=== PATIENT | male | born 1960 | race Caucasian/White ===

== ENCOUNTER 2024-09-20 08:36 | Outpatient (AMB) | payer BC, SELFPAY ==
--- NOTE | 2024-09-20 09:05 | A.SPINEOV_ITS ---
Intake Visit Reasons: cervical radiculopathy Intake Note: Mr. Vieira is here today c/o numbness and tingling in both hands. MRI done @ [facility] Meteorological Technician Required: No Assessment & Plan Assessment & Plan (1) Carpal tunnel syndrome on both sides: Code(s): G56.03 - Carpal tunnel syndrome, bilateral upper limbs Category: Medical Plan Dear colleague Thank you for referring Emilio Vieira to the office today with a chief complaint of bilateral hand numbness and tingling. HPI: This 64-year-old male developed tingling in both hands approximately 6 months ago. The tingling is mostly in the thumb index and middle finger. The right side is more affected than the left side. The symptoms are worse in the middle of the night and wake him up. He drops objects. He denies radiating pain from the neck. PMH: Hypercholesterolemia, arthritis, prediabetes Allergies: NKDA Social history: Employed. Nonsmoker Physical Exam: Pleasant male. Wrist flexion produces tingling in the hands. Nuclear Medicine Technician is 4+ out of 5 bilaterally. Reflexes are symmetrically intact. Radiological Studies: MRI done at [facility] shows cervical degenerative disc disease with bilateral C6 foraminal stenosis. . In addition there is right C5 foraminal stenosis. Impression/Plan: This patient is most likely suffering from carpal tunnel syndrome. I will order an EMG to confirm the diagnosis. The patient will follow-up after the EMG is done. Thank you for allowing me to participate in your patients care. total time spent was 45 minutes in counseling ,coordination of plan, personal review of imaging, surgical decision making and subsequent plan Ignacio Kenney MD, PhD Spine Fellowship Trained Neurosurgeon Director, [facility] Orders: Orders 2 NE electromyogram (EMG) Today G56.03 - Carpal tunnel syndrome, bilateral upper limbs Coding Level of Care Code New Pt Level 4 (24939) Diagnoses Carpal tunnel syndrome on both sides G56.03
== END 2024-09-20 09:26 | disposition home or self-care (01) ==
PROVIDERS: PCP Student in an Organized Health Care Education/Training Program; Visit Provider Neurological Surgery
DX: G56.03 Carpal tunnel syndrome, bilateral upper limbs (principal)
CPT/HCPCS: 99204

== ENCOUNTER → 2024-09-20 08:36 | Outpatient (BNVA) | payer OTHER, SELFPAY | PROVIDERS: PCP Student in an Organized Health Care Education/Training Program; Visit Provider Neurological Surgery ==

== ENCOUNTER 2024-10-11 13:30 | Outpatient (REF) | payer BC, SELFPAY ==
--- NOTE | 2024-10-11 | EMG_ITS ---
Chief complaint: Bilateral hand numbness, denies neck pain Reason for referral: Evaluate for Carpal Tunnel Syndrome Referred by: Dr. Kenney Procedure done: Bilateral upper extremities NCS/EMG Precautions and/or limitations: None The limb temperature was monitored continuously and remained between 32-36 degrees C during the performance of the NCS. Nerve Conduction Studies Anti Sensory Summary Table ?Stim Site NR Onset (ms) Norm Onset (ms) Peak (ms) Norm Peak (ms) O-P Amp (?V) Norm O-P Amp Site1 Site2 Delta-0 (ms) Dist (cm) Aidan (m/s) Norm Aidan (m/s) Left Median Anti Sensory (2nd Digit) Wrist NR <3.6 >10 Wrist 2nd Digit 14.0 Right Median Anti Sensory (2nd Digit) Wrist NR <3.6 >10 Wrist 2nd Digit 14.0 Right Radial Anti Sensory (Thumb) Forearm ? 2.4 3.1 <3.1 53.8 Forearm Thumb 2.4 0.0 Left Ulnar Anti Sensory (5th Digit) Wrist ? 1.4 3.0 <3.7 15.5 >15.0 Wrist 5th Digit 1.4 14.0 100 Right Ulnar Anti Sensory (5th Digit) Wrist ? 2.8 3.7 <3.7 15.0 >15.0 Wrist 5th Digit 2.8 14.0 50 Motor Summary Table ?Stim Site NR Onset (ms) Norm Onset (ms) O-P Amp (mV) Norm O-P Amp iAmp (mV) Amp (1st) (%) Site1 Site2 Delta-0 (ms) Dist (cm) Aidan (m/s) Norm Aidan (m/s) Left Median Motor (Abd Poll Brev) Wrist ? 6.3 <3.9 8.7 >4.5 11.4 100.0 Elbow Wrist 4.5 20.0 44 >45 Elbow ? 10.8 7.9 10.0 90.8 Right Median Motor (Abd Poll Brev) Wrist ? 8.7 <3.9 7.2 >4.5 9.5 100.0 Elbow Wrist 5.3 20.0 38 >45 Elbow ? 14.0 4.8 6.1 66.7 Left Ulnar Motor (Abd Dig Minimi) Wrist ? 2.9 <3.0 6.3 >5 7.8 100.0 B Elbow Wrist 3.3 18.5 56 >45 B Elbow ? 6.2 5.0 6.3 79.4 A Elbow B Elbow 1.8 10.0 56 >45 A Elbow ? 8.0 5.9 7.4 93.7 Right Ulnar Motor (Abd Dig Minimi) Wrist ? 2.3 <3.0 6.5 >5 8.5 100.0 B Elbow Wrist 4.1 19.0 46 >45 B Elbow ? 6.4 5.8 7.6 89.2 A Elbow B Elbow 1.3 10.0 77 >45 A Elbow ? 7.7 6.0 7.9 92.3 EMG ?Side Muscle Nerve Root Ins Act Fibs Psw Amp Dur Poly Recrt Int Pat Comment Right 1stDorInt Ulnar C8-T1 Nml Nml Nml Nml Nml 0 Nml Complete Right FlexCarRad Median C6-7 Nml Nml Nml Nml Nml 0 Nml Complete Right Biceps Musculocut C5-6 Nml Nml Nml Nml Nml 0 Nml Complete Right Triceps Radial C6-7-8 Nml Nml Nml Nml Nml 0 Nml Complete Right Deltoid Axillary C5-6 Nml Nml Nml Nml Nml 0 Nml Complete Left 1stDorInt Ulnar C8-T1 Nml Nml Nml Nml Nml 0 Nml Complete Left FlexCarRad Median C6-7 Nml Nml Nml Nml Nml 0 Nml Complete Left Biceps Musculocut C5-6 Nml Nml Nml Nml Nml 0 Nml Complete Left Triceps Radial C6-7-8 Nml Nml Nml Nml Nml 0 Nml Complete Left Deltoid Axillary C5-6 Nml Nml Nml Nml Nml 0 Nml Complete Paraspinal EMG ?Side Muscle Nerve Root Ins Act Fibs Psw Comment Right Cervical Upper Rami Nml Nml Nml Right Cervical Mid Rami Nml Nml Nml Right Cervical Lower Rami Nml Nml Nml Left Cervical Upper Rami Nml Nml Nml Left Cervical Mid Rami Nml Nml Nml Left Cervical Lower Rami Nml Nml Nml FINDINGS: Right median motor nerve showed prolonged distal latency, normal amplitude and normal conduction velocity. Left median motor nerve showed prolonged distal latency, normal amplitude and slow conduction velocity. Bilateral median sensory nerves showed absent response. All other nerves tested were within normal. Concentric needle EMG was performed in selected muscles of the bilateral upper extremities and cervical paraspinals. Study did not reveal signs of electric abnormalities as shown in the table above. IMPRESSION: 1. This is an abnormal study. 2. There is electrodiagnostic evidence for bilateral moderate-severe median neuropathy at the wrist, consistent with carpal tunnel syndrome. 3. There is no electrodiagnostic evidence for ulnar neuropathy, brachial plexopathy, or cervical radiculopathy. Thank you for your kind referral. Jazmine Ortiz MD, CLAUDE Board Certified, [place] Board of [employer] Medicine and Rehabilitation (ABPMR) Board Certified, [place] Board of Electrodiagnostic Medicine (ABEM) CODIN [phone] x 2 MTDD
--- OUTSIDE RECORDS SUMMARY | 2024-10-11 13:39 | XMS_ITS | Encounter Summary ---
Author Organization [facility] Address [phone] [facility] [place] [address] Care Team Providers Care Radio Frequency Engineer Name Role Phone Kerry Madrid MD Primary Care Provider + [phone] Sandra Rocha PA-C Unavailable [phone] Reason for Visit * Reason Comments Procedure Encounter Details Date Type Department Care Team (Late st Contact Info) Description 09/19/2024 3:45 PM EST Office Visit [facility] [address] [place] [address] Arnold Yates, DO [address] [facility], [address] [place] [address] [email or web address] Skin lesion of neck (Primary Dx) Social History Tobacco Use Types Packs/Day Years Used Date Smoking Tobacco: Never Smokeless Tobacco: Never Child or Family Care Answer Date Record ed Do you have problems with on e of the following making it difficult for you to work, study, or receive health care? No 11/02/2023 Education Answer Date Recorded Are you interested in help w ith more adult education (for example, completing high school, GED, job training, learning the [place] language, technical skills, or developing parenting skills)? No 11/02/2023 Are you concerned about learning? Not on file 11/02/2023 No 11/02/2023 Yes 11/02/2023 Food Answer Date Recorded Within the past 6 months we worried whether our food would run out before we got money to buy more. Never True 11/02/2023 Within the past 6 months the food we bought just didn't last and we didn't have enough money to get more. Never True Residential Stability Answer Date Recor ded What is your housing situation today? I have allison landers 11/02/2023 How many times have you move d in the past 12 months? Zero (I did not move) 11/02/2023 Paying for Meds Answer Date Recorded Do you have trouble paying for medicines? No 11/02/2023 Paying Utility Bills Answer Date Record ed Do you have trouble paying your heating or elect ricity bill? No 11/02/2023 Transportation Answer Date Recorded Has the lack of transportati on kept you from medical appointments or from getting medications? No 11/02/2023 Digital Access Answer Date Recorded No 11/02/2023 Yes 11/02/2023 Do you have reliable internet access at home? Ye s 11/02/2023 Do you have a device (e.g., phone, tablet, computer) with a working camera? Yes 11/02/2023 Intimate Partner Violence Answer Date R ecorded Denied Basic Needs Not on file 11/02/2023 In the past 12 months have y ou been in a relationship with a person who hurts, threatens, or tries to control you? No 11/02/2023 Worried food would run out Not on file 11/02 In the past 12 months have y ou been in a relationship with a person who hurts, threatens, or tries to control you? No 11/02/2023 Sex and Gender Information Value Date Recorded Sex Assigned at Not on file Gender Identity Not on file Sexual Orientation Not on file documented as of this encounter Last Filed Vital Signs Vital Sign Reading Time Taken Comments Blood Pressure - - Pulse - - Temperature - - Respiratory Rate - - Oxygen Saturation - - Inhaled Oxygen Concentration - - Weight - - Height 177.8 cm (5' 10 ) 09/19/2024 3:46 PM EST Body Mass Index - - documented in this encounter Progress Notes * Arnold Yates, DO - 09/19/2024 3:45 PM EST Images from the original note were not included. Subjective: Patient ID: Sergey Chopra is a 64 y.o. male. Fabrizio presents for a skin lesion removal of the right side of his neck-in the back. He notes that this area has been scabbed over multiple times and he would like this removed today. He denies any fevers or chills. No other concerns today. Review of Systems Constitutional: Negative. Negative for chills and fever. HENT: Negative. Respiratory: Negative. Cardiovascular: Negative. Psychiatric/Behavioral: Negative. Skin: Skin lesion of the back- right side of his neck. Objective: Physical Exam Constitutional: Appearance: Normal appearance. HENT: Head: Normocephalic. Cardiovascular: Rate and Rhythm: Normal rate and regular rhythm. Pulses: Normal pulses. Heart sounds: Normal heart sounds. No murmur heard. No friction rub. No gallop. Pulmonary: Effort: Pulmonary effort is normal. Musculoskeletal: Cervical back: Neck supple. Skin: General: Skin is warm. Neurological: Mental Status: He is alert. Psychiatric: Mood and Affect: Mood normal. Assessment/Plan: Problem List Items Addressed This Visit Skin lesion of neck - Primary Sergey Chopra is a 64 y.o. year old male presenting for a skin lesion of neck removal. Consent was signed and time out was performed. The patient was prepped and draped in the normal sterile fashion. Using 1% lidocaine with epinephrine 1 cc was used with good anesthetics. Using a derma blade the 6 mm skin lesion was removed without any complications. Measurements: The total excised diameter: 7 m m. The defect was subjected to Drysol x 4 passes-good effects. Minimal blood loss. No complications. I sent the biopsy out to pathology today-I will update him with the results. Wound care was discussed. A bandaid was placed overtop. he will follow up as needed. he understands and agrees. Relevant Medications lidocaine-EPINEPHrine (XYLOCAINE w/EPI) 1%-1:100,000 injection 1 mL (Start on 09/19/2024 5:00 PM) Other Relevant Orders Dermatopathology documented in this encounter Miscellaneous Notes * Assessment & Plan Note - Arnold Yates DO - 09/19/2024 4:03 PM EST Associated Problem(s): Skin lesion of neck Sergey Chopra is a 64 y.o. year old male presenting for a skin lesion of neck removal. Consent was signed and time out was performed. The patient was prepped and draped in the normal sterile fashion. Using 1% lidocaine with epinephrine 1 cc was used with good anesthetics. Using a derma blade the 6 mm skin lesion was removed without any complications. Measurements: The total excised diameter: 7 m m. The defect was subjected to Drysol x 4 passes-good effects. Minimal blood loss. No complications. I sent the biopsy out to pathology today-I will update him with the results. Wound care was discussed. A bandaid was placed overtop. he will follow up as needed. he understands and agrees. documented in this encounter Plan of Treatment Upcoming Encounters Date Type Department Care Team (Late st Contact Info) Description 12/18/2024 3:00 PM EDT Office Visit [address] [address] Kerry Madrid MD [address] [place] [address] [address] [place] [address] [email or web address] Scheduled Orders Name Type Priority Associated Diagnoses Orde r Schedule Dermatopathology Pathology and Cytology Routine Skin lesion of neck Expected: 09/19/2024, Expires: 09/19/2025 documented as of this encounter Procedures Procedure Name Priority Date/Time Associated Diagnosis Comments ANATOMIC PATHOLOGY Routine 09/19/2024 12 :00 AM EST documented in this encounter Results * Anatomic Pathology (09/19/2024 12:00 AM EST) 09/19/2024 09/23/2024 9:1 0 AM EST Narrative SEE NARRATIVE - 09/24/2024 2:16 PM EST [address] [address] Behavioral Health Clinician: Rizwan Young MD ?? Surgical Pathology Report FINAL PATHOLOGIC DIAGNOSIS: SKIN, RIGHT NECK POSTERIOR, BIOPSY: ?? Traumatized polypoid intradermal melanocytic nevus without atypia. Electronically Signed Out By Rizwan Young MD By his/her signature above, the pathologist listed as making the Final Diagnosis certifies that he/she has personally reviewed this case and confirmed or corrected the diagnosis. CLINICAL HISTORY Growth of neck ??posterior right side. ??This scabs at times. ??Darker pigmentation. ??For removal. SPECIMENS SUBMITTED: A: SKIN, RIGHT NECK POSTERIOR, BIOPSY GROSS DESCRIPTION SKIN, RIGHT NECK POSTERIOR, BIOPSY: Received in formalin is a 0.8 x 0.6 cm irregular skin shave excised to a maximum depth of 0.1 cm. ??The skin surface exhibits a scaly, penn-pink papule measuring 0.6 x 0.4 x 0.3 cm. ??The specimen is trisected and entirely submitted in a single cassette labeled A1. Grossed by: ALLY Davidson PA([facility]) DN ??09/23/2024 Grossing Staff: ??[id number] Patient Name: SERGEY CHOPRA : 1960 (Age: 64) Sex: M Institution: [facility] Location: [facility] Date of Operation: 09/19/2024 Date of Reported: 09/24/2024 14:16 Results To: Jessica Crain MD Arnold Yates DO PATHOLOGY ORDERABLE S SEE NARRATIVE documented in this encounter Visit Diagnoses Diagnosis Skin lesion of neck- Primary documented in this encounter Additional Health Concerns Assessment Noted Time PHQ-2 Depression Total Score: 0 02/06/20 24 6:18 AM EDT documented as of this encounter Care Teams Radio Frequency Engineer Relationship Specialty Start Date End Date Kerry Madrid MD [address] [place] [address] [address] [place], [place] [id number] [email or web address] PCP - General Family Medicine 11/08/23 Sandra Rocha, JOANNEC [address] [place] [phone] [email or web address] Physician Well Drill Operator Cable Tool Hematology 01/31/24 documented as of this encounter Additional Source Comments The information contained in this document represents components of the legal health record. It is not the complete legal health record.[facility]
--- OUTSIDE RECORDS SUMMARY | 2024-10-11 13:40 | XMS_ITS | Encounter Summary ---
Author Organization [facility] Address [phone] [place] [address] Care Team Providers Care Weed Sprayer Name Role Phone Kerry Madrid MD Primary Care Provider + [phone] Sandra Rocha PA-C Unavailable [phone] Reason for Visit * Reason Comments Follow-up Encounter Details Date Type Department Care Team (Late st Contact Info) Description 09/12/2024 4:45 PM EST Office Visit [facility] Medicine [address] [place] [address] Arnold Yates, DO [address] [facility], [address] [place] [address] [email or web address] Skin lesion of neck (Primary Dx) Social [...] high school, GED, job training, learning the [place] language, technical skills, or developing parenting skills)? [...] Sign Reading Time Taken Comments Blood Pressure 130/90 09/12/2024 4:36 PM EST Pulse 108 09/12/2024 4:36 PM EST Temperature 36.3 ??C (97.3 ??F) 09/12/2024 4:36 PM ES T Respiratory Rate - - Oxygen Saturation 96% 09/12/2024 4:36 PM EST Inhaled Oxygen Concentration - - Weight 93 kg (205 lb) 09/12/2024 4:36 PM EST Height 177.8 cm (5' 10 ) 09/12/2024 4:36 PM EST Body Mass Index 29.41 09/12/2024 4:36 PM EST documented in this encounter Progress Notes * Arnold Yates DO - 09/12/2024 4:45 PM EST Images from the original note were not included. Subjective: Patient ID: Emilio Vieira is a 64 y.o. male. Fabrizio presents for an issue on his skin, it is on the back of his neck/upper back region. He started noticing this about 2 weeks ago. He scratched it and it has scabbed over. It has senia a little sore and tender then he touches it. This bled a little last week. No fever or chills. No other concerns today. Review of Systems Constitutional: Negative. HENT: Negative. Respiratory: Negative. Negative for shortness of breath. Cardiovascular: Negative. Negative for chest pain. Psychiatric/Behavioral: Negative. Skin: Abnormal mole on his upper back region. Musculoskeletal: Negative. Objective: Physical Exam Constitutional: Appearance: Normal appearance. Comments: Male. HENT: Head: Normocephalic. Cardiovascular: Rate and Rhythm: Normal rate and regular rhythm. Pulses: Normal pulses. Heart sounds: Normal heart sounds. No murmur heard. No friction rub. No gallop. Pulmonary: Effort: Pulmonary effort is normal. Breath sounds: Normal breath sounds. No wheezing or rhonchi. Musculoskeletal: Cervical back: Neck supple. Skin: General: Skin is warm. Neurological: Mental Status: He is alert. Psychiatric: Mood and Affect: Mood normal. Assessment/Plan: Problem List Items Addressed This Visit Skin lesion of neck - Primary Demetrio presents for skin lesion on his neck-I gave guidance for removal of this- shave biopsy and I will update him with the results of the pathology once it is resulted. I discussed the procedure with him in the office and he was in agreement with getting this done either next week or the week after. All questions answered. He will call if there are any other issues or concerns. He understands and agrees. documented in this encounter Miscellaneous Notes * Assessment & Plan Note - Arnold Yates DO - 09/12/2024 4:59 PM EST Associated Problem(s): Skin lesion of neck Demetrio presents for skin lesion on his neck-I gave guidance for removal of this- shave biopsy and I will update him with the results of the pathology once it is resulted. I discussed the procedure with him in the office and he was in agreement with getting this done either next week or the week after. All questions answered. He will call if there are any other issues or concerns. He understands and agrees. documented in this encounter Plan of Treatment Upcoming Encounters Date Type Department Care Team (Late st Contact Info) Description 12/18/2024 3:00 PM EDT Office Visit [address] [address] Kerry Madrid MD [address] [place] [phone] [email or web address] documented as of this encounter Visit Diagnoses Diagnosis Skin lesion of neck- Primary documented in this encounter Additional Health Concerns Assessment Noted Time PHQ-2 Depression Total Score: 0 02/06/20 24 6:18 AM EDT documented as of this encounter Care Teams Weed Sprayer Relationship Specialty Start Date End Date Kerry Madrid MD [address] [place] [place] [phone] PCP - General Family Medicine 11/08/23 Sandra Rocha PA-C [address] [place] [phone] Physician Comfort Station Supervisor Hematology 01/31/24 documented as of this encounter Additional Source Comments The information contained in this document represents components of the legal health record. It is not the complete legal health record.[facility]
--- OUTSIDE RECORDS SUMMARY | 2024-10-11 13:40 | XMS_ITS | Encounter Summary ---
Author Organization [facility] Address [phone] [facility] [place] [address] Care Team Providers Care Inpatient Services Director Name Role Phone Kerry Madrid MD Primary Care Provider + [phone] Sandra Rocha PA-C Unavailable [phone] Encounter Details Date Type Department Care Team (Late st Contact Info) Description 05/22/2024 Procedure Pass [facility], [address] [address] Social History Tobacco Use Types Packs/Day Years [...] high school, GED, job training, learning the [place] language, technical skills, or developing parenting skills)? [...] your housing situation today? I have allison sing 11/02/2023 How many times have you move [...] on file documented as of this encounter Plan of Treatment Upcoming Encounters Date Type Department Care Team (Late st Contact Info) Description 12/18/2024 3:00 PM EDT Office Visit [facility] Medicine [address] [place] [address] Kerry Madrid MD [address] [place] [phone] [email or web address] documented as of this encounter Visit Diagnoses Not on filedocumented in this encounter Additional Health Concerns Assessment Noted Time PHQ-2 Depression Total Score: 0 02/06/20 24 6:18 AM EDT documented as of this encounter Care Teams Inpatient Services Director Relationship Specialty Start Date End Date Kerry Madrid MD [address] [place] [phone] [email or web address] PCP - General Family Medicine 11/08/23 Sandra Rocha PA-C [address] [place] [address] [email or web address] Physician Veterinary Medicine Scientist Hematology 01/31/24 documented as of this encounter Additional Source Comments The information contained in this document represents components of the legal health record. It is not the complete legal health record.[facility]
--- OUTSIDE RECORDS SUMMARY | 2024-10-11 13:40 | XMS_ITS | Encounter Summary ---
Author Organization [facility] Address [phone] [facility] [place] [place] [address] Care Team Providers Care Collection Card Clerk Name Role Phone Kerry Madrid MD Primary Care Provider + [phone] Sandra Rocha PA-C Unavailable [phone] Encounter Details Date Type Department Care Team (Late st Contact Info) Description 11/08/2023 Procedure Pass [facility], [facility] Scan - [facility] [address] [place] [address] Social History Tobacco Use Types Packs/Day Years [...] high school, GED, job training, learning the [place] language, technical skills, or developing parenting skills)? [...] EDT Office Visit [facility] Medicine [address] [place] [address] Kerry Madrid MD [address] [place] [phone] [email or web address] documented as of this encounter Visit Diagnoses Not on filedocumented in this encounter Additional Health Concerns Assessment Noted Time PHQ-2 Depression Total Score: 0 11/02/19 24 5:37 PM EST documented as of this encounter Care Teams Collection Card Clerk Relationship Specialty Start Date End Date Kerry Madrid MD [address] [place] [phone] [email or web address] PCP - General Family Medicine 11/08/23 Sandra Rocha PA-C [address] [place] [phone] [email or web address] Physician Manager Credit Risk Hematology 01/31/24 documented as of this encounter Additional Source Comments The information contained in this document represents components of the legal health record. It is not the complete legal health record.[facility]
--- OUTSIDE RECORDS SUMMARY | 2024-10-11 13:40 | XMS_ITS | Clinical Summary ---
Author Organization [facility] Address [phone] [facility] [place] [address] Care Team Providers Care Registered Physical Therapist Name Role Phone Kerry Madrid MD Primary Care Provider [phone] Sandra Rocha PA-C Unavailable [phone] Allergies No known active allergies Medications Medication Sig Dispensed Refills Start Date End Date Status omeprazole (PRILOSEC) 20 MG capsule Take 20 mg by mouth daily. 09/11/2022 Active rosuvastatin (CRESTOR) 5 MG tablet Take 1 tablet (5 mg total) by mouth every morning. 90 tablet 3 11/13/2023 Active fenofibrate (TRICOR) 48 MG tablet Take 1 tablet (48 mg total) by mouth every morning. 90 tablet 3 12/20/2023 Active Hospital, Clinic, or Other Facility Administered Medication Ordered Dose Route Frequency Start Date End Date Status lidocaine-EPINEPHrine (XYLOCAINE w/EPI) 1%-1:100,000 injection 1 mLIndications:Skin lesion of neck 1 mL SubQ Once 09/19/2024 12/18/2024 Active Active Problems Problem Noted Date Diagnosed Date Skin lesion of neck 09/12/2024 Assessment & Plan (09/19/2024 4:03 PM EST): Sergey Chopra is a 64 y.o. year [...] complications. Measurements: The total excised diameter: 7 mm. The defect was subjected to Drysol x 4 passes-good effects. Minimal blood loss. No complications. I sent the biopsy out to pathology today-I will update him with the results. Wound care was discussed. A bandaid was placed overtop. he will follow up as needed. he understands and agrees. Assessment & Plan (09/12/2024 4:59 PM EST): Demetrio presents for skin lesion on his [...] issues or concerns. He understands and agrees. Cervical radiculopathy 05/08/2024 Assessment & Plan (09/09/2024 2:36 PM EST): MRI confirms cervical stenosis, to neurosurg for evaluation. (Dr Lainez already in for 10/28, would like 2nd option at [facility]) Orders: Ambulatory referral to External Neurosurgery Assessment & Plan (07/17/2024 4:11 PM EST): Given the progression of his symptoms and changes to strength I am concerned about spinal stenosis or disc herniation. It is possible that weakness may not improve if it continues to progress without intervention, would need MRI to determine appropriate intervention. I strongly suggest an MRI to further assess.I have asked nursing to try PA again to be able to get this done promptly. Fatty liver 02/06/2024 Type 2 diabetes mellitus wit hout complication, without long-term current use of insulin 02/06/2024 Assessment & Plan (09/09/2024 2:36 PM EST): Recheck fasting labs prior to november appt, so he has time to regroup after holiday splurge Orders: Comprehensive metabolic panel; Future Hemoglobin A1c; Future Microalbumin/creatinine ratio, random urine; Future Hypertriglyceridemia 02/06/2024 Assessment & Plan (09/09/2024 2:36 PM EST): Recheck labs after locking down low carb diet Orders: Lipid panel; Future Hereditary hemochromatosis 01/25/2024 Transaminitis 01/25/2024 Elevated ferritin 11/27/2023 Numbness and tingling in both hands 11/10/2023 Overview (09/09/2024): More numbness in right hand than left Essential hypertension 11/08/2023 Screening for lung cancer 11/08/2023 Pure hypercholesterolemia 11/08/2023 Lower urinary tract symptoms 11/08/2023 Encounters Date Type Department Care Team Description 09/19/2024 3:45 PM EST Office Visit [address] [address] Arnold Yates DO Skin lesion of neck (Primary Dx) 09/12/2024 4:45 PM EST Office Visit [address] [address] Arnold Yates DO Skin lesion of neck (Primary Dx) 09/09/2024 2:00 PM EST Office Visit [address] [address] Kerry Madrid MD Cervical radiculopathy (Primary Dx); Type 2 diabetes mellitus without complication, without long-term current use of insulin; Hypertriglyceridemia; Actinic keratosis 08/28/2024 Orders Only [address] [address] Kerry Madrid MD Cervical stenosis of spine (Primary Dx) 08/24/2024 6:32 AM EST - 08/24/2024 11:59 PM EST Hospital Encounter [facility], [facility] - [address] [address] Kerry Madrid MD Discharge Disposition: Home or Self Care 08/03/2024 8:34 AM EST - 08/03/2024 11:59 PM EST Hospital Encounter [facility] [address] [place] [id number] Kerry Madrid MD Discharge Disposition: Home or Self Care 07/17/2024 4:00 PM EST Office Visit [facility] [address] [place] [address] Morro Silverman CNP Cervical radiculopathy (Primary Dx) 05/22/2024 Procedure Pass [facility], [facility] - [facility] [address] [place] [address] from Last 3 Months Immunizations Name Administration Dates Next Due Flu H1n1 Tiv Preservative Free 07/12/2018 Influenza Quadrivalent MDCK Preservative Free IM 09/05/2023,07/25/2022,07/06/2021 Influenza Quadrivalent Preservative Free IM 12/2019 Influenza Trivalent Preservative Free IM 024 Influenza Trivalent w/ Preservative IM 7 Td, unspecified formulation 11/17/2004 Tdap 09/05/2023,11/26/2014 Family History Medical History Relation Comments COPD Mother Dementia Mother Diabetes Mother Relation Status Comments Mother 84 of demen tia Social History Tobacco Use Types Packs/Day Years Used Date Smoking Tobacco: Never Smokeless Tobacco: Never Tobacco Cessation:Counseling Given: Not Answered Child or Family Care Answer Date Record ed Do you have problems with on e of the following making it difficult for you to work, study, or receive health care? No 11/02/2023 Education Answer Date Recorded Are you interested in help w ith more adult education (for example, completing high school, GED, job training, learning the Occitan language, technical skills, or developing parenting skills)? [...] on file Sexual Orientation Not on file Last Filed Vital Signs Vital Sign Reading [...] EST Height 177.8 cm (5' 10 ) 09/19/2024 3:46 PM EST Body Mass Index 29.41 09/12/2024 4:36 PM EST Plan of Treatment Upcoming Encounters Date Type Department Care Team (Late st Contact Info) Description 12/18/2024 3:00 PM EDT Office Visit [facility] [address] [place], [place] [phone] Kerry Madrid MD [address] [place] [address], [address] [place] [address] [email or web address] Health Maintenance Due Date Last Done Comments HEPATITIS B SCREENING 1978 HIV ONE-TIME SCREENING (18-65 YEARS) 1978 PNEUMOCOCCAL VACCINES (50+ years) (1 of 2 - PCV) 1979 COLOGUARD 2005 FIT TEST 2005 FOBT 2005 SIGMOIDOSCOPY 2005 VIRTUAL COLONOSCOPY 2005 ZOSTER VACCINES (1 of 2) 2010 DIABETIC EYE EXAM 02/06/2024 URINE MICROALBUMIN/CREATININE RATIO 02/06/2024 HEMOGLOBIN A1C 01/31/2025 08/03/2024, 04/11, 11/24/2023 DEPRESSION SCREENING 02/05/2025 02/06/2024 BLOOD PRESSURE 03/12/2025 09/12/2024 COLONOSCOPY 09/11/2029 09/11/2019 COLORECTAL CANCER SCREENING 09/11/2029 Adult Td,Tdap Booster 09/05/2033 09/05/2023 , 11/26/2014, 11/17/2004 RSV VACCINE (1 - 1-dose 75+ series) 2035 HEPATITIS C SCREENING Completed 04/06/2024 INFLUENZA VACCINE Completed 05/08/2024, , 07/25/2022, Additional history exists COVID-19 VACCINE Completed 06/29/2024, 10/2020, 01/12/2021, Additional history exists SMOKING STATUS SCREENING (Once After 26 Yrs) Completed 09/12/2024 HEPATITIS A VACCINES Aged Out No long er eligible based on patient's age to complete this topic HEPATITIS B VACCINES Aged Out No long er eligible based on patient's age to complete this topic HIB VACCINES Aged Out No longer eligi ble based on patient's age to complete this topic MENINGOCOCCAL VACCINES (ACWY) Aged Out No longer eligible based on patient's age to complete this topic Medical Devices Not on file Procedures Procedure Name Priority Date/Time Associated Diagnosis Comments ANATOMIC PATHOLOGY Routine 09/19/2024 12 :00 AM EST MRI CERVICAL SPINE (NEURO) FOCUS WITHOUT CONTRAST Routine 08/24/2024 7:13 AM EST Cervical radiculopathy Cervical stenosis of spine COMPREHENSIVE METABOLIC PANEL Routine 08/03/2024 8:45 AM EST Type 2 diabetes mellitus without complication, without long-term current use of insulin Hypertriglyceridem ia HEMOGLOBIN A1C Routine 08/03/2024 8:45 AM EST Type 2 diabetes mellitus without complication, without long-term current use of insulin LIVER FIBROSIS TEST Routine 04/06/2024 9 :14 AM EDT Elevated ferritin level HM COLONOSCOPY FOR RESULT ENTRY ONLY Routine 09/11/2019 from Last 3 Months or Most Recently Relevant to Health Maintenance Results * Anatomic Pathology (09/19/2024 12:00 AM EST) 09/19/2024 09/23/2024 9:1 0 AM EST Narrative SEE NARRATIVE - 09/24/2024 2:16 [place] [address] Intelligence Research Specialist: Rizwan Young MD ?? Surgical Pathology Report [...] single cassette labeled A1. Grossed by: ALLY Davidson, [facility] CHARLIE ??09/23/2024 Grossing Staff: ??[id number] Patient Name: SERGEY CHOPRA : 1960 (Age: 64) Sex: M Institution: [facility] Location: [facility] Date of Operation: 09/19/2024 Date of Reported: 09/24/2024 14:16 Results To: Arnold Yates M.D. Kerry Amador MD Arnold Yates DO PATHOLOGY ORDERABLE S SEE NARRATIVE * MRI CERVICAL SPINE (NEURO) FOCUS WITHOUT CONTRAST (08/24/2024 7:13 AM EST) Anatomical Region Laterality Modality C-spine Magnetic Resonan ce 08/26/2024 10:4 1 AM EST Impressions 08/26/2024 10:53 AM EST 1. ??Multilevel degenerative changes as detailed above, most prominent at C5-C6 and C6-C7 with [id number] foraminal stenosis. Narrative 08/26/2024 10:53 AM EST MRI CERVICAL SPINE (NEURO) FOCUS WITHOUT CONTRAST Referring clinician's provided indication for this examination in Epic: * Cervical radiculopathy, no red flags; * Neck pain, chronic, degenerative changes on xray; * Spinal stenosis, C-spine; cervical radiculopathy, xray shows spondylopathy TECHNIQUE: MRI CERVICAL SPINE (NEURO) FOCUS WITHOUT CONTRAST Multi-sequence, multi-planar MRI of the cervical spine was performed without intravenous contrast. ?? COMPARISON: XR CERVICAL SPINE 2-3 VIEWS FINDINGS: CERVICAL SPINE: Alignment and Vertebrae: Loss of normal cervical lordosis with reversal centered at C5-C6. Vertebral body height is maintained. Marrow: Endplates and degenerative change, especially at C5-C6 and C6-C7. Discs and Endplates: Mild multilevel loss of disc height, especially at C5-C6 and C6-7. Spinal Cord: No spinal cord compression or signal abnormality. Soft Tissue: No prevertebral edema. Findings by level: C2-C3: No spinal or foraminal stenosis. C3-C4: Mild uncovertebral arthropathy contributing mild bilateral foraminal stenosis. C4-C5: Mild uncovertebral arthropathy contributing mild bilateral foraminal stenosis. C5-C6: Disc bulge with posterior disc osteophyte complex with facet and uncovertebral arthropathy, worse on the RIGHT, contributing to moderate RIGHT and mild LEFT foraminal stenosis. C6-C7: Disc bulge with posterior disc osteophyte complex with facet and uncovertebral arthropathy contributing to mild RIGHT and moderate LEFT foraminal stenosis. C7-T1: No spinal or foraminal stenosis. Procedure Note Dl Schofield MD, PhD - 08/26/2024 MRI CERVICAL SPINE (NEURO) FOCUS WITHOUT CONTRAST Referring clinician's provided indication for this examination in Epic: *Cervical radiculopathy, no red flags; * Neck pain, chronic, degenerativechanges on xray; * Spinal stenosis, C-spine; cervical radiculopathy, xrayshows spondylopathy TECHNIQUE: MRI CERVICAL SPINE (NEURO) FOCUS WITHOUT CONTRAST Multi-sequence, multi-planar MRI of the cervical spine was performedwithout intravenous contrast. COMPARISON: XR CERVICAL SPINE 2-3 VIEWS 2023- FINDINGS: CERVICAL SPINE: Alignment and Vertebrae: Loss of normal cervical lordosis with reversalcentered at C5-C6. Vertebral body height is maintained. Marrow: Endplates and degenerative change, especially at C5-C6 andC6-C7. Discs and Endplates: Mild multilevel loss of disc height, especially atC5-C6 and C6-7. Spinal Cord: No spinal cord compression or signal abnormality. Soft Tissue: No prevertebral edema. Findings by level: C2-C3: No spinal or foraminal stenosis. C3-C4: Mild uncovertebral arthropathy contributing mild bilateralforaminal stenosis. C4-C5: Mild uncovertebral arthropathy contributing mild bilateralforaminal stenosis. C5-C6: Disc bulge with posterior disc osteophyte complex with facet anduncovertebral arthropathy, worse on the RIGHT, contributing to moderateRIGHT and mild LEFT foraminal stenosis. C6-C7: Disc bulge with posterior disc osteophyte complex with facet anduncovertebral arthropathy contributing to mild RIGHT and moderate LEFTforaminal stenosis. C7-T1: No spinal or foraminal stenosis. IMPRESSION: 1. Multilevel degenerative changes as detailed above, most prominent atC5-C6 and C6-C7 with [id number] foraminal stenosis. Kerry Madrid MD IMG MR XSPECIALTY * (ABNORMAL) Comprehensive metabolic panel (08/03/2024 8:45 AM EST) SODIUM 140 133 - 146 mmol/L [facility] POTASSIUM 4.2 3.3 - 5.1 mmol/L [facility] CHLORIDE 103 96 - 108 mmol/L [facility] CO2 26 21 - 35 mmol/L [facility] BUN 22(H) 6 - 19 mg/dL [facility] CREATININE 0.80 0.5 - 1.5 mg/dL [facility] GLUCOSE 119(H) 70 - 99 mg/dL [facility] ALBUMIN 4.3 3.9 - 4.8 g/dL [facility] TOTAL PROTEIN 7.0 6.5 - 8.0 g/dL [facility] CALCIUM 9.2 8.4 - 10.3 mg/dL [facility] ALKALINE PHOSPHATASE 41 39 - 117 U/L [facility] TOTAL BILIRUBIN 0.7 0.0 - 1.2 mg/dL [facility] AST 24 0 - 37 U/L [facility] ALT 19 0 - 40 U/L [facility] GLOBULIN 2.7 1 - 4.8 g/dL [facility] EGFR 99 >59 mL/min/1.7 3m2 [facility] Comment:Estimated glomerular filtration rate calculated using the CKD-EPI refit equation. ANION GAP 15 10 - 20 mmol/L [facility] Blood 08/03/2024 8:45 AM EST 08/03/2024 8:48 AM EST Kerry Madrid MD LAB BLOOD ORDERAB LES [facility] [address] [place] [address] * (ABNORMAL) Hemoglobin A1c (08/03/2024 8:45 AM EST) HEMOGLOBIN A1C 6.0(H) 4.3 - 5.8 % [facility] Blood 08/03/2024 8:45 AM EST 08/03/2024 8:48 AM EST Kerry Madrid MD LAB BLOOD ORDERAB LES Performing Organization Address City/State/[facility] Co de Phone Number [address] [address] * Liver fibrosis test (04/06/2024 9:14 AM EDT) Fibrosis score 0.25 [facility] Interpretation (Fibrosis) SEE NOTE [facility] Comment: (NOTE) no fibrosis Fibro Test Score (f) ??Metavir Score f>=0 and f<=0.21 : F0 (no fibrosis) f>0.21 and f<=0.27 : F0-F1 (no fibrosis) f>0.27 and f<=0.31 : F1 (minimal fibrosis) f>0.31 and f<=0.48 : F1-F2 (minimal fibrosis) f>0.48 and f<=0.58 : F2 (moderate fibrosis) f>0.58 and f<=0.72 : F3 (advanced fibrosis) f>0.72 and f<=0.74 : F3-F4 (advanced fibrosis) f>0.74 and f<=1.00 : F4 (severe fibrosis) HCV Fibrosis Grade SEE NOTE Q [facility] Comment: (NOTE) ?Result: ? F0-F1 NECROINFLAMM SCORE 0.06 Q [facility] NECROINFLAMM GRADE A0 Q [facility] NECROINFLAMM INTERP SEE NOTE [facility] Comment: (NOTE) no activity ActiTest Score (a) ?Metavir Score a>=0 and a<=0.17 : A0 (no activity) a>0.17 and a<=0.29 : A0-A1 (no activity) a>0.29 and a<=0.36 : A1 (minimal activity) a>0.36 and a<=0.52 : A1-A2 (minimal activity) a>0.52 and a<=0.60 : A2 (significant activity) a>0.60 and a<=0.62 : A2-A3 (significant activity) a>0.62 and a<=1.00 : A3 (severe activity) A2 Macroglobulin 159 106 - 279 mg/dL [employer] [employer] [facility] Haptoglobin 122 43 - 212 mg/dL [employer] Apolipoprotein A1 126 94 - 176 mg/dL [employer] [facility] TOTAL BILIRUBIN 0.6 0.2 - 1.2 mg/dL [employer] GGT 18 3 - 70 U/L [employer] ALT 18 9 - 46 U/L [employer] [facility] Specimen/Product ID [id number] [employer] Comments (Chemistry) SEE NOTE [employer] Comment: (NOTE) The reliability of results is dependent on compliance with the preanalytical and analytical conditions recommended by [employer]. The tests have to be deferred for: acute hemolysis, acute hepatitis, acute inflammation, extra hepatic cholestasis. The advice of a specialist should be sought for interpretation in chronic hemolysis and Gilbert's syndrome. The test interpretation is not validated in liver transplant patients. Isolated extreme values of one of the components should lead to caution in interpreting the results. In case of discordance between a biopsy result and a test, it is recommended to seek the advice of a specialist. The causes of these discordances could be due to a flaw of the test or to a flaw in the biopsy: i.e. a liver biopsy has a 33% variability rate for one fibrosis stage. FibroTest is interpretable for chronic hepatitis B and C, alcoholic and non alcoholic steatosis. ActiTest is interpretable for chronic hepatitis B and C. The performance characteristics have been determined by [facility]. It has not been cleared or approved by the U.S. Food and Drug Administration. Performance characteristics refer to the analytical performance of the test. [employer], the associated logo, [employer] and all associated [employer] sal are the registered trademarks of [employer]. All third alliance party sal - (R) and (TM) - are the property of their respective owners. (C) [id number] [employer]. All rights reserved. Blood 04/06/2024 9:14 AM EDT 04/06/2024 9:18 AM EDT Sandra Rocha PA-C LAB BLOOD ORDERABL ES [facility] [address] [place] [address], [facility] [phone] * COLONOSCOPY FOR RESULT ENTRY ONLY (09/11/2019) Colonoscopy normal Historical Provider MD LEANNA Norton from Last 3 Months or Most Recently Relevant to Health Maintenance Care Teams Registered Physical Therapist Relationship Specialty Start Date End Date Kerry Madrid MD [address] [place] [address], [address] [place] [address] PCP - General Family Medicine 11/08/23 Sandra Rocha PA-C [address] [place] [id number] [email or web address] Physician Welcome Wagon Hostess Hematology 01/31/24 Additional Source Comments The information contained in this document represents components of the legal health record. It is not the complete legal health record.[facility]
== END 2024-10-11 13:31 | disposition home or self-care (01) ==
LOC: HO.NEURO 13:30
PROVIDERS: Visit Provider Neurological Surgery
DX: G56.03 Carpal tunnel syndrome, bilateral upper limbs (principal)
CPT/HCPCS: 95886; 95911

== ENCOUNTER 2024-10-23 14:44 | Outpatient (AMB) | payer BC, SELFPAY ==
--- NOTE | 2024-10-23 14:46 | HO.SPINEOV ---
Intake Visit Reasons: F/u EMG Intake Note: Mr. Vieira is here today to F/u on the results to his EMG. Faculty Research Physician Required: No Assessment & Plan Assessment & Plan (1) Carpal tunnel syndrome on both sides: Code(s): G56.03 - Carpal tunnel syndrome, bilateral upper limbs Category: Medical Plan Dear colleague, On October 23, 2024 I saw for follow-up Emilio Vieira. The EMG confirms the diagnosis of bilateral carpal tunnel syndrome. The patient states that his symptoms are getting worse. The weakness and numbness are progressing and he now developed pain as well. On exam, there is muscle atrophy of the thenar region. There is a grade 3/5 weakness of the muscular opponens pollicis bilaterally. Tinel's positive. This patient is suffering from severe carpal tunnel syndrome with neurological deficits and therefore I offered him a carpal tunnel release, right side on a rather urgent basis for October 29. Surgery will be done under local anesthesia. The procedure and expected outcome was discussed. Thank you for allowing me take care of your patient. Ignacio Kenney MD, PhD Spine Fellowship Trained Neurosurgeon Director, [facility] Coding Level of Care Code Est Pt Level 3 (29956) Diagnoses Carpal tunnel syndrome on both sides G56.03
--- OUTSIDE RECORDS SUMMARY | 2024-10-23 15:57 | XMS_ITS | Encounter Summary ---
Author Organization [facility] Address [phone] [facility] [place] [address] Care Team Providers Care Senior Java Data Architect Name Role Phone Kerry Madrid MD Primary Care Provider [phone] Sandra Rocha PA-C Unavailable [phone] Encounter Details Date Type Department Care Team (Late st Contact Info) Description 05/22/2024 Procedure Pass [facility], [address] [address] Social History Tobacco Use Types Packs/Day Years [...] high school, GED, job training, learning the Turkish language, technical skills, or developing parenting skills)? [...] Description 12/18/2024 3:00 PM EDT Office Visit [facility] [address] [place] [address] Kerry Madrid MD [address] [place] [phone] [email or web address] documented as of this encounter Visit Diagnoses Not on filedocumented in this encounter Additional Health Concerns Assessment Noted Time PHQ-2 Depression Total Score: 0 02/06/20 24 6:18 AM EDT documented as of this encounter Care Teams Senior Java Data Architect Relationship Specialty Start Date End Date Kerry Madrid MD [address] [place] [phone] [email or web address] PCP - General Family Medicine 11/08/23 Sandra Rocha PA-C [address] [place] [phone] [email or web address] Physician [employer] Dispatcher Hematology 01/31/24 documented as of this encounter Additional Source Comments The information contained in this document represents components of the legal health record. It is not the complete legal health record.[facility]
--- OUTSIDE RECORDS SUMMARY | 2024-10-23 15:57 | XMS_ITS | Clinical Summary ---
Author Organization [facility] Address [phone] [place] [address] Care Team Providers Care Event Marketing Coordinator Name Role Phone Kerry Madrid MD Primary Care Provider [phone] Sandra Rocha PA-C Unavailable [phone] Allergies No known active allergies Medications Medication [...] for 10/28, would like 2nd [facility] at [facility] Orders: Ambulatory referral to External Neurosurgery Assessment [...] Description 09/19/2024 3:45 PM EST Office Visit [address] [address] Arnold Yates DO Skin lesion of neck (Primary Dx) 09/12/2024 4:45 PM EST Office Visit [address] [address] Arnold Yates DO Skin lesion of neck (Primary Dx) 09/09/2024 2:00 PM EST Office Visit [address] [address] Kerry Madrid MD Cervical radiculopathy (Primary Dx); Type 2 diabetes mellitus without complication, without long-term current use of insulin; Hypertriglyceridemia; Actinic keratosis 08/28/2024 Orders Only [address] [address] Kerry Madrid MD Cervical stenosis of spine (Primary Dx) 08/24/2024 6:32 AM EST - 08/24/2024 11:59 PM EST Hospital Encounter [facility], [facility] - [address] [address] Kerry Madrid MD Discharge Disposition: Home or Self Care 08/03/2024 8:34 AM EST - 08/03/2024 11:59 PM EST Hospital Encounter [facility] [address] [place] [address] Kerry Madrid MD Discharge Disposition: Home or Self Care 05/22/2024 Procedure Pass [facility], [address] [address] from Last 3 Months Immunizations Name Administration [...] high school, GED, job training, learning the Kittitian language, technical skills, or developing parenting skills)? [...] Description 12/18/2024 3:00 PM EDT Office Visit [facility] Medicine [address] [place] [address] Kerry Madrid MD 234 [facility], [address] [place] [address] [email or web address] Health Maintenance Due Date Last Done Comments [...] SEE NARRATIVE - 09/24/2024 2:16 [place] [address] Automobile Glass Technician: Rizwan Young MD ?? Surgical Pathology Report [...] cassette labeled A1. Grossed by: ALLY Davidson, KINGS(ASCP) DN ??09/23/2024 Grossing Staff: ??[id number] Patient Name: SERGEY CHOPRA : 1960 (Age: 64) Sex: M Institution: [facility] Location: [facility] Date of Operation: 09/19/2024 Date of Reported: 09/24/2024 14:16 Results To: Jessica Crain MD Arnold Yates DO PATHOLOGY ORDERABLES SEE NARRATIVE * MRI CERVICAL SPINE (NEURO) FOCUS WITHOUT CONTRAST (08/24/2024 7:13 AM EST) Anatomical Region Laterality Modality C-spine Magnetic Resonan ce 08/26/2024 10:4 1 AM EST Impressions 08/26/2024 10:53 AM EST 1. ??Multilevel degenerative changes as detailed above, most prominent at C5-C6 and C6-C7 with mrym-iu-znzcttgc foraminal stenosis. Narrative 08/26/2024 10:53 AM EST [...] above, most prominent atC5-C6 and C6-C7 with iaus-zp-dhpmogob foraminal stenosis. Kerry Madrid MD IMG MR XSPECIALTY * (ABNORMAL) Comprehensive metabolic panel (08/03/2024 8:45 AM EST) SODIUM 140 133 - 146 mmol/L [facility] POTASSIUM 4.2 3.3 - 5.1 mmol/L [facility] CHLORIDE 103 96 - 108 mmol/L [facility] CO2 26 21 - 35 mmol/L [facility] BUN 22(H) 6 - 19 mg/dL [facility] CREATININE 0.80 0.5 - 1.5 mg/dL [facility] GLUCOSE 119(H) 70 - 99 mg/dL [facility] ALBUMIN 4.3 3.9 - 4.8 g/dL [facility] TOTAL PROTEIN 7.0 6.5 - 8.0 g/dL [facility] CALCIUM 9.2 8.4 - 10.3 mg/dL [facility] ALKALINE PHOSPHATASE 41 39 - 117 U/L [facility] TOTAL BILIRUBIN 0.7 0.0 - 1.2 mg/dL [facility] AST 24 0 - 37 U/L [facility] ALT 19 0 - 40 U/L [facility] GLOBULIN 2.7 1 - 4.8 g/dL [facility] EGFR 99 >59 mL/min/1.7 3m2 [facility] Comment:Estimated glomerular filtration rate calculated using the CKD-EPI refit equation. ANION GAP 15 10 - 20 mmol/L [facility] Blood 08/03/2024 8:45 AM EST 08/03/2024 8:48 AM EST Kerry Madrid MD LAB BLOOD ORDERAB LES [facility] [address] [place] [address] * (ABNORMAL) Hemoglobin A1c (08/03/2024 8:45 AM EST) HEMOGLOBIN A1C 6.0(H) 4.3 - 5.8 % [facility] Blood 08/03/2024 8:45 AM EST 08/03/2024 8:48 AM EST Kerry Madrid MD LAB BLOOD ORDERAB LES [address] [address] * Liver fibrosis test (04/06/2024 9:14 AM EDT) Fibrosis score 0.25 [facility] Interpretation (Fibrosis) SEE NOTE [facility] Comment: (NOTE) no fibrosis Fibro Test Score [...] Fibrosis Grade SEE NOTE Q [facility] Comment: (NOTE) ?Result: ? F0-F1 NECROINFLAMM SCORE 0.06 Q [facility] NECROINFLAMM GRADE A0 Q [facility] NECROINFLAMM INTERP SEE NOTE [facility] Comment: (NOTE) no activity ActiTest Score (a) [...] A2 Macroglobulin 159 106 - 279 mg/dL [facility]/ Make YES! Happen [facility] Haptoglobin 122 43 - 212 mg/dL [facility]/ [facility] Apolipoprotein A1 126 94 - 176 mg/dL [facility] TOTAL BILIRUBIN 0.6 0.2 - 1.2 mg/dL [facility] GGT 18 3 - 70 U/L [facility]/ [facility] ALT 18 9 - 46 U/L [facility] Specimen/Product ID [id number] [facility] Comments (Chemistry) SEE NOTE [facility]/ [facility] Comment: (NOTE) The reliability of results is dependent on compliance with the preanalytical and analytical conditions recommended by [employer]. The tests have to be deferred for: [...] The performance characteristics have been determined by [employer] [place]. It has not been cleared or approved by the U.S. Food and Drug Administration. Performance characteristics refer to the analytical performance of the test. [employer], the associated logo, [employer] and all associated [employer] sal are the registered trademarks of [employer]. All third libertarian sal - (R) and (TM) - are the property of their respective owners. (C) 9123-5408 [employer]. All rights reserved. Blood 04/06/2024 9:14 AM EDT 04/06/2024 9:18 AM EDT Sandra Rocha PA-C LAB BLOOD ORDERABL ES [facility] [address] [place] [address], [place] [phone] * COLONOSCOPY FOR RESULT ENTRY ONLY (09/11/2019) Colonoscopy normal Historical Provider MD LEANNA Norton from Last 3 Months or Most Recently Relevant to Health Maintenance Care Teams Event Marketing Coordinator Relationship Specialty Start Date End Date Kerry Madrid MD [address] [place] [address], [address] [place] [address] [email or web address] PCP - General Family Medicine 11/08/23 Sandra Rocha PA-C [address] [place], [place] [id number] [email or web address] Physician Software Release Manager Hematology 01/31/24 Additional Source Comments The information contained in this document represents components of the legal health record. It is not the complete legal health record.[facility]
--- OUTSIDE RECORDS SUMMARY | 2024-10-23 15:57 | XMS_ITS | Encounter Summary ---
Author Organization [facility] Address [phone] [facility] [place] [address] Care Team Providers Care Congressional Representative Name Role Phone Kerry Madrid MD Primary Care Provider [phone] Sandra Rocha PA-C Unavailable [phone] Encounter Details Date Type Department Care Team (Late st Contact Info) Description 11/08/2023 Procedure Pass [facility], Ct Scan - [facility] [address] [place] [address] Social History Tobacco Use Types Packs/Day Years [...] high school, GED, job training, learning the Pashto language, technical skills, or developing parenting skills)? [...] Description 12/18/2024 3:00 PM EDT Office Visit [facility] Medicine [address] [place] [address] Kerry Madrid MD [address] [place] [address] [email or web address] documented as of this encounter Visit Diagnoses Not on filedocumented in this encounter Additional Health Concerns Assessment Noted Time PHQ-2 Depression Total Score: 0 11/02/19 24 5:37 PM EST documented as of this encounter Care Teams Congressional Representative Relationship Specialty Start Date End Date Kerry Madrid MD [address] [place] [address] [email or web address] PCP - General Family Medicine 11/08/23 Sandra Rocha PA-C [address] [place] [email or web address] Physician Sail Repair Person Hematology 01/31/24 documented as of this encounter Additional Source Comments The information contained in this document represents components of the legal health record. It is not the complete legal health record.[facility]
== END 2024-10-23 15:46 | disposition home or self-care (01) ==
PROVIDERS: Visit Provider Neurological Surgery
DX: G56.03 Carpal tunnel syndrome, bilateral upper limbs (principal)
CPT/HCPCS: 99213

== ENCOUNTER 2024-10-29 09:57 | Day surgery (SDC) | payer BC, SELFPAY ==
--- NOTE | 2024-10-29 10:10 | PC.NURSE ---
per mirza pt local doesnot need iv or abx on hold
[2024-10-29 10:17] VITALS: BMI 22.2
[2024-10-29 10:23] VITALS: BP 130/65; PULSE 97; RESP 18; TEMP 36.1; O2SAT 97
--- NOTE | 2024-10-29 12:56 | MHC.SHP ---
Pre-Procedural Eval Section A - 24 Hr Update-Section A only Date of Service: 10/29/24 The patient is an INPATIENT: No The patient has been examined within 24 hours of the surgical procedure. The History & Physical has been completed within 30 days and I have reviewed it.: Yes Section B - Complete if H&P > 30 days Chief Complaint: Carpal tunnel syndrome, unspecified upper limb Details of Present Illness: Right carpal tunnel syndrome Allergies: Allergies Allergy/AdvReac Type Severity Reaction Status Date / Time No Known Allergies Allergy Verified 10/29/24 10:21 Review of Systems Sugical H&P ROS: Negative: Constitution, Cardiovascular, Respiratory, Psychiatric, Hem-Onc, Allergic/Immunologic, Gastrointestinal, Genitourinary, Musculoskeletal, Integumentary, Endocrine and Eyes/Ears/Nose/Throat and Yes, Specify: Neurological (Right hand weakness and numbness) Exam Surgical H&P Exam: Normal: HEENT, Normal: Heart, Normal: Lungs, Normal: Extremities, Normal: Abdomen and Normal: Skin and Significant Findings: Neurological (Opponens pollicis weakness 3/5) Plan Diagnosis/Plan: Unchanged I have reviewed the history and physical and performed a pertinent physical examination on my patient. No changes have occurred unless specified. Right carpal tunnel release under local Time Spent With Patient Time: Total time managing care of this patient today _6___ minutes.
--- NOTE | 2024-10-29 12:59 | W.PM.OPN ---
Operative Note Operative Note Date of Service: 10/29/24 Narrative: Diagnosis: Right carpal tunnel syndrome Procedure: Right median nerve release Surgeon: Ignacio Kenney MD PhD Description procedure: This patient is suffering from a bilateral carpal tunnel syndrome, right more than left with weakness and numbness of the right hand. The patient was offered a decompression of the median nerve. The procedure complications were explained. The patient was consented. He was brought to the operating room, where moderate sedation was applied. Prepping and draping was done followed by time-out. Marcaine was injected into the mid volar region. A midvolar incision was made. The ligamentum carpi transversum was opened sharply until the median nerve became visible. A Metzenbaum scissor was used to decompress the median nerve proximally and distally over its trajectory. Significant compression was present. Hemostasis was done. The incision was closed with 3 interrupted sutures. A compressive CARLTON wrap was used for hemostasis. All sponge and needle counts were correct. Patient was transported to the recovery room. Anesthesia: Moderate sedation and local anesthetic Blood loss: Minimal Complications: None Disposition: Discharge home
--- NOTE | 2024-10-29 14:03 | P.DS_ITS ---
DS: Providers Provider Date of Service: 10/29/24 Date of discharge: 10/29/24 Primary care physician: Kerry Madrid MD Admitting clinician: Ignacio Kenney DS: Diagnosis Discharge Diagnosis (1) Carpal tunnel syndrome on both sides: Status: Acute DS: Summary Time Attestation Discharge Coordination Time (in mins): 6 Quality: Safe Use of Opioids Does Pt have an Active Cancer Diagnosis on the Problem List?: No Quality: Stroke Does the patient have a stroke diagnosis?: No Physical Exam Vital Signs: Vital Signs: Last Vital Signs Temp 97 F 10/29/24 10:23 Pulse 97 10/29/24 10:23 Resp 18 10/29/24 10:23 BP 130/65 10/29/24 10:23 Pulse Ox 97 10/29/24 10:23 O2 Del Method Room Air 10/29/24 10:23 BMI result Body Mass Index 22.2 Discharge Plan Discharge Patient Disposition: Home, Self-Care Referrals: Kerry Madrid MD [Primary Care Provider] - 1 Week Discharge Medications: New tramadol 50 mg tablet 50 mg PO Q8H PRN (Reason: pain) Qty: 14 0RF Continued rosuvastatin 5 mg tablet 5 mg PO QAM fenofibrate nanocrystallized 48 mg tablet 48 mg PO QAM Discharge Orders: Discharge Order (Routine); Ordered 10/29/24 Ordered By: Valentin Krishnan Activity Restrictions/Additional Instructions: After her carpal tunnel surgery, please observe the following guidelines: You may remove your jose wrap on post op day 3, as well as the dressing underneath it There are sutures in your wound, and you will need these removed 10-14 days after surgery. Please call the office to arrange this visit, You can use your hand as much as you like, however, please avoid straining or heavy lifting It will help swelling in your hand to keep it elevated when you are not using it. You can shower on post op day 1, but please keep wound dry You can drive when you feel comfortable and are off narcotics If you experience any signs of infection such as fever, chills or redness/discharge from your wound,please call office right away Print Language: East Timorese
[2024-10-29 14:15] VITALS: BP 156/96; PULSE 86; RESP 16; TEMP 36.1; O2SAT 96
== END 2024-10-29 14:20 | disposition home or self-care (01) ==
PROVIDERS: PCP Student in an Organized Health Care Education/Training Program; Visit Provider Neurological Surgery
PROC: (CPT 64721; principal; 2024-10-29 13:40)
DX: G56.01 Carpal tunnel syndrome, right upper limb (principal); R20.0 Anesthesia of skin; E78.00 Pure hypercholesterolemia, unspecified; Z98.890 Other specified postprocedural states; Z79.899 Other long term (current) drug therapy
CPT/HCPCS: 64721; J2003

== ENCOUNTER → 2024-10-29 09:57 | Outpatient (BNV) | payer BC, SELFPAY | PROVIDERS: PCP Student in an Organized Health Care Education/Training Program; Visit Provider Physician Assistant | DX: G56.01 Carpal tunnel syndrome, right upper limb (principal) | CPT/HCPCS: 64721; 99499 ==

== ENCOUNTER 2024-11-12 14:19 | Outpatient (AMB) | payer BC, SELFPAY ==
--- NOTE | 2024-11-12 14:35 | HO.SPINEOV ---
Intake Visit Reasons: Suture removal Intake Note: Mr. Vieira is here today for suture removal. Podiatric Aide Required: No Allergies No Known Allergies Allergy (Verified 10/29/24 10:21) Assessment & Plan Assessment & Plan (1) Carpal tunnel syndrome on both sides: Code(s): G56.03 - Carpal tunnel syndrome, bilateral upper limbs Category: Medical Plan Emilio is a pleasant 64-year-old male who underwent right-sided carpal tunnel release few weeks ago. He is overall feeling very good since his surgery, and reports his numbness and tingling in the right hand has completely resolved. He is able to curl his fingertips of the distal palmar crease without issue. His hand business office technician is essentially back to normal per his report. I removed 2 sutures from the patient's ventral wrist. He tolerated the removal well. The area was cleansed in the normal sterile fashion. After removal of his sutures the patient inquired about when he can be booked for his left-sided carpal tunnel release. I reviewed his EMG which state he has moderate-severe bilateral carpal tunnel syndrome. He reports that he discussed with Dr. Kenney that he can get his left-sided carpal tunnel release done after his right is completed. I discussed this with our surgical clinical reviewer. Because the patient is doing so well I do not see any issue booking him for the of December. Emilio was given risk and benefits of surgery including but not limited to infection, hematoma, nerve injury, weakness, muscle injury, persistent pain, as well as the option to continue with conservative treatment and patient wishes to proceed with surgery. They are aware they should stop NSAIDs 7 days prior to surgery. All questions were answered to the best of our ability. If there is anything about this patients medical history that we have overlooked or concerns you have about us proceeding with surgery we would appreciate any input you can offer. Mehul Kenney MD,PhD [facility] Coding Level of Care Code Global (76483) Diagnoses Carpal tunnel syndrome on both sides G56.03
--- OUTSIDE RECORDS SUMMARY | 2024-11-12 18:06 | XMS_ITS | Encounter Summary ---
Author Organization [facility] Address [address] [place] [address] [place] [address] Phone Care Team Providers Care Talent Acquisition Operations Manager Name Role Phone Kerry Madrid MD Primary Care Provider Sandra Rocha PA-C Unavailable [phone] Reason for Visit * Reason Comments Medication Refill Encounter Details Date Type Department Care Team (Late st Contact Info) Description 10/27/2024 Refill [facility] Medicine [address] [place] [address] Kerry Madrid MD 234 [facility] [address] [place] [address] [email or web address] Medication Refill Social History Tobacco Use Types Packs/Day Years [...] high school, GED, job training, learning the Wolof language, technical skills, or developing parenting skills)? [...] on file documented as of this encounter Progress Notes * Vivian García - 10/29/2024 3:13 PM EST Rx Care Gap Status - Instructions for Clinical Staff (prescriber discretion applies): n/a Visit Info Last visit: 09/19/2024 Arnold Yates DO - Family Medicine [facility] > Requested f/u: Return if symptoms worsen or fail to improve. Upcoming visit: 12/18/2024 Kerry Madrid MD - Family Medicine [facility] ACTIONS TAKEN BY Vivian García - Refill protocol passed: no action needed. Cholesterol Medication Rx Protocol (on Diabetes Registry) - rosuvastatin calcium Criteria met; renew for up to 12 months. Visit in the past 14 months: Yes Clinical criteria: - Lipid panel within past year: Yes (LDL 87 on 04/27/2024) Lab Results Component Value Date LDL 87 04/27/2024 HDL 36 04/27/2024 CARDIAC RISK RATIO 4.8 04/27/2024 TRIGLYCERIDES 252 (H) 04/27/2024 CHOLESTEROL 173 04/27/2024 documented in this encounter Plan of Treatment Upcoming Encounters Date Type Department Care Team (Late st Contact Info) Description 12/18/2024 3:00 PM EDT Office Visit [facility] Medicine [address] [place] [address] Kerry Madrid MD [address] [place] [address] [email or web address] documented as of this encounter Visit Diagnoses Not on filedocumented in this encounter Additional Health Concerns Assessment Noted Time PHQ-2 Depression Total Score: 0 02/06/20 24 6:18 AM EDT documented as of this encounter Care Teams Talent Acquisition Operations Manager Relationship Specialty Start Date End Date Kerry Madrid MD [address] [place] [address] PCP - General Family Medicine 11/08/23 Sandra Rocha PA-C [address] [place] [address] Physician High School Music Director Hematology 01/31/24 documented as of this encounter Additional Source Comments The information contained in this document represents components of the legal health record. It is not the complete legal health record.[facility]
--- OUTSIDE RECORDS SUMMARY | 2024-11-12 18:06 | XMS_ITS | Encounter Summary ---
Author Organization [facility] Address [address] [facility] [address] [place] [address] Phone Care Team Providers Care Manager Specialty Name Role Phone Kerry Madrid MD Primary Care Provider [phone] Sandra Rocha PA-C Unavailable [phone] Encounter Details Date Type Department Care Team (Late st Contact Info) Description 05/22/2024 Procedure Pass [facility] [address] [place] [address] Social History Tobacco Use Types Packs/Day Years [...] high school, GED, job training, learning the Venezuelan language, technical skills, or developing parenting skills)? [...] Description 12/18/2024 3:00 PM EDT Office Visit [facility] Medicine [address] [place] [address] Kerry Madrid MD [address] [address] [email or web address] documented as of this encounter Visit Diagnoses Not on filedocumented in this encounter Additional Health Concerns Assessment Noted Time PHQ-2 Depression Total Score: 0 02/06/20 24 6:18 AM EDT documented as of this encounter Care Teams Manager Specialty Relationship Specialty Start Date End Date Kerry Madrid MD [address] [address] [email or web address] PCP - General Family Medicine 11/08/23 Sandra Rocha PA-C [address] [place] [address] Physician Chair Trimmer Hematology 01/31/24 documented as of this encounter Additional Source Comments The information contained in this document represents components of the legal health record. It is not the complete legal health record.[facility]
--- OUTSIDE RECORDS SUMMARY | 2024-11-12 18:06 | XMS_ITS | Encounter Summary ---
Author Organization [facility] Address [address] [employer] [facility] [address] [place] [address] Phone Care Team Providers Care Tractor Mechanic Apprentice Name Role Phone Kerry Madrid MD Primary Care Provider [phone] Sandra Rocha PA-C Unavailable [phone] Encounter Details Date Type Department Care Team (Late st Contact Info) Description 11/08/2023 Procedure Pass [facility], Ct Scan - [facility] [address] [place] [address] Social History Tobacco Use Types Packs/Day Years [...] high school, GED, job training, learning the Sinhala language, technical skills, or developing parenting skills)? [...] Description 12/18/2024 3:00 PM EDT Office Visit [facility] Medicine [address] [place] [address] Kerry Madrid MD [address] [place] [address] [email or web address] documented as of this encounter Visit Diagnoses Not on filedocumented in this encounter Additional Health Concerns Assessment Noted Time PHQ-2 Depression Total Score: 0 11/02/19 24 5:37 PM EST documented as of this encounter Care Teams Tractor Mechanic Apprentice Relationship Specialty Start Date End Date Kerry Madrid MD [address] [address] PCP - General Family Medicine 11/08/23 Sandra Rocha PA-C [address] [place] [address] Physician Customer Resolution Specialist Hematology 01/31/24 documented as of this encounter Additional Source Comments The information contained in this document represents components of the legal health record. It is not the complete legal health record.[facility]
--- OUTSIDE RECORDS SUMMARY | 2024-11-12 18:06 | XMS_ITS | Clinical Summary ---
Author Organization [facility] Address [address] [place], [place] [address] Phone Care Team Providers Care Bar Machine Operator Name Role Phone Kerry Madrid MD Primary Care Provider [phone] Sandra Rocha PA-C Unavailable [phone] Allergies No known active allergies Medications Medication Sig Dispensed Refills Start Date End Date Status omeprazole (PRILOSEC) 20 MG capsule Take 20 mg by mouth daily. 09/11/2022 Active fenofibrate (TRICOR) 48 MG tablet Take 1 tablet (48 mg total) by mouth every morning. 90 tablet 3 12/20/2023 Active rosuvastatin (CRESTOR) 5 MG tablet TAKE 1 TABLET BY MOUTH EVERY DAY IN THE MORNING 90 tablet 3 10/29/2024 Active rosuvastatin (CRESTOR) 5 MG tablet Take 1 tablet (5 mg total) by mouth every morning. 90 tablet 3 11/13/2023 10/29/2024 Discontinued Hospital, Clinic, or Other Facility Administered Medication [...] for 10/28, would like 2nd option at [facility]) Orders: Ambulatory referral to External Neurosurgery Assessment [...] EST): Recheck fasting labs prior to november app, so he has time to regroup after [...] Encounters Date Type Department Care Team Description 10/27/[address] [address] Kerry Madrid MD Medication Refill 09/19/2024 3:45 PM EST Office Visit [address] [address] Arnold Yates DO Skin lesion of neck (Primary Dx) 09/12/2024 4:45 PM EST Office Visit [address] [address] Arnold Yates DO Skin lesion of neck (Primary Dx) 09/09/2024 2:00 PM EST Office Visit [address] [address] Kerry Madrid MD Cervical radiculopathy (Primary Dx); Type 2 diabetes mellitus without complication, without long-term current use of insulin; Hypertriglyceridemia; Actinic keratosis 08/28/2024 Orders Only [address] [address] Kerry Madrid MD Cervical stenosis of spine (Primary Dx) 08/24/2024 6:32 AM EST - 08/24/2024 11:59 PM EST Hospital Encounter [address] [address] Kerry Madrid MD Discharge Disposition: Home or Self Care 05/22/2024 Procedure Pass [address] [address] from Last 3 Months Immunizations Name Administration [...] high school, GED, job training, learning the Burmese language, technical skills, or developing parenting skills)? [...] Upcoming Encounters Date Type Department Care Team ([facility] st Contact Info) Description 12/18/2024 3:00 PM EDT Office Visit [facility] Medicine [address] [place] [address] Kerry Madrid MD [address] [facility], [address] [place] [address] (work) Health Maintenance Due Date Last Done Comments [...] EST Cervical radiculopathy Cervical stenosis of spine HEMOGLOBIN A1C Routine 08/03/2024 8:45 AM EST [...] SEE NARRATIVE - 09/24/2024 2:16 [place] [address] Continuous Dryout Operator Helper: Rizwan Young MD ?? Surgical Pathology Report [...] : 1960 (Age: 64) Sex: M Institution: [facility] Location: [facility] Date of Operation: 09/19/2024 Date of Reported: 09/24/2024 14:16 Results To: Arnold Yates M.D. Kerry Amador MD Arnold Yates DO PATHOLOGY ORDERABLES SEE NARRATIVE * MRI CERVICAL SPINE (NEURO) FOCUS WITHOUT CONTRAST (08/24/2024 7:13 AM EST) Anatomical Region Laterality Modality C-spine Magnetic Resonan ce 08/26/2024 10:4 1 AM EST Impressions 08/26/2024 10:53 AM EST 1. ??Multilevel degenerative changes as detailed above, most prominent at C5-C6 and C6-C7 with [id number] foraminal stenosis. Narrative 08/26/2024 10:53 AM EST [...] above, most prominent atC5-C6 and C6-C7 with [id number]-[id number] foraminal stenosis. Kerry Madrid MD IMG MR XSPECIALTY * (ABNORMAL) Hemoglobin A1c (08/03/2024 8:45 AM EST) HEMOGLOBIN A1C 6.0(H) 4.3 - 5.8 % [facility] Blood 08/03/2024 8:45 AM EST 08/03/2024 8:48 AM EST Kerry Madrid MD LAB BLOOD ORDERAB LES Performing Organization Address City/State/[facility] Co de Phone Number [address] [address] * Liver fibrosis test (04/06/2024 9:14 AM EDT) Fibrosis score 0.25 [facility] Interpretation (Fibrosis) SEE NOTE [facility] Comment: (NOTE) no fibrosis Fibro Test Score [...] Fibrosis Grade SEE NOTE Q [facility] Comment: (NOTE) ?Result: ? F0-F1 NECROINFLAMM SCORE 0.06 Q [facility] NECROINFLAMM GRADE A0 Q [facility] NECROINFLAMM INTERP SEE NOTE [facility] Comment: (NOTE) no activity ActiTest Score (a) [...] A2 Macroglobulin 159 106 - 279 mg/dL [place] [facility] Haptoglobin 122 43 - 212 mg/dL [employer] [facility] Apolipoprotein A1 126 94 - 176 mg/dL i[facility]/ [facility] TOTAL BILIRUBIN 0.6 0.2 - 1.2 mg/dL [facility]/ [facility] GGT 18 3 - 70 U/L [facility]/ [facility] ALT 18 9 - 46 U/L [employer] [facility] Specimen/Product ID [id number] [facility]/ [facility] Comments (Chemistry) SEE NOTE [facility]/ [facility] Comment: (NOTE) The reliability of results is dependent on compliance with the preanalytical and analytical conditions recommended by V[employer]. The tests have to be deferred for: [...] The performance characteristics have been determined by [employer] [facility]. It has not been cleared or approved by the U.S. Food and Drug Administration. Performance characteristics refer to the analytical performance of the test. Yotta280, the associated logo, Bernal [place] and all associated [employer] sal are the registered trademarks of [employer]. All third constitution party sal - (R) and (TM) - are the property of their respective owners. (C) [id number] [employer]. All rights reserved. Blood 04/06/2024 9:14 AM EDT 04/06/2024 9:18 AM EDT Sandra Rocha PA-C LAB BLOOD ORDERABL ES iClinical/[facility] [address] [place] [address], [facility] [phone] * COLONOSCOPY FOR RESULT ENTRY ONLY (09/11/2019) Colonoscopy normal Historical Provider MD LEANNA Norton from Last 3 Months or Most Recently Relevant to Health Maintenance Care Teams Bar Machine Operator Relationship Specialty Start Date End Date Kerry Madrid MD [address] [place] [address], [address] [place] [address] PCP - General Family Medicine 11/08/23 Sandra Rocha PA-C [address] [place] [address] Physician Presentation Manager Hematology 01/31/24 Additional Source Comments The information contained in this document represents components of the legal health record. It is not the complete legal health record.[facility]
== END 2024-11-12 14:53 | disposition home or self-care (01) ==
PROVIDERS: PCP Student in an Organized Health Care Education/Training Program; Visit Provider Physician Assistant
DX: G56.03 Carpal tunnel syndrome, bilateral upper limbs (principal)
CPT/HCPCS: 99024

== ENCOUNTER 2024-12-05 11:18 | Day surgery (SDC) | payer BC, SELFPAY ==
--- OUTSIDE RECORDS SUMMARY | 2024-11-21 15:39 | XMS_ITS | Encounter Summary ---
Author Organization [facility] Address [address] [facility] [address] [place] [address] Phone Care Team Providers Care Produce Laborer Name Role Phone Kerry Madrid MD Primary Care Provider [phone] Sandra Rocha PA-C Unavailable [phone] Encounter Details Date Type Department Care Team (Late st Contact Info) Description 11/08/2023 Procedure Pass [facility], Ct Scan - [facility] [address] [place] [address] Social History Tobacco Use Types Packs/Day Years [...] high school, GED, job training, learning the Peruvian language, technical skills, or developing parenting skills)? [...] Description 12/18/2024 3:00 PM EDT Office Visit [facility] Medicine [address] [place] [address] Kerry Madrid MD [address] [place] [address] [email or web address] documented as of this encounter Visit Diagnoses Not on filedocumented in this encounter Additional Health Concerns Assessment Noted Time PHQ-2 Depression Total Score: 0 11/02/19 24 5:37 PM EST documented as of this encounter Care Teams Produce Laborer Relationship Specialty Start Date End Date Kerry Madrid MD [address] [address] PCP - General Family Medicine 11/08/23 Sandra Rocha PA-C [address] [place] [address] Physician Post Production Assistant Hematology 01/31/24 documented as of this encounter Additional Source Comments The information contained in this document represents components of the legal health record. It is not the complete legal health record.[facility]
--- OUTSIDE RECORDS SUMMARY | 2024-11-21 15:39 | XMS_ITS | Clinical Summary ---
Author Organization [facility] Address [address] [place], [place] [address] Phone Care Team Providers Care Applied Marine Physics Professor Name Role Phone Kerry Madrid MD Primary Care Provider [phone] Sandra Rocha PA-C Unavailable [phone] Allergies No known active allergies Medications Medication [...] for 10/28, would like 2nd option at [facility]) Orders: Ambulatory referral to External Neurosurgery Assessment [...] Type Department Care Team Description 10/27/[address] [address] Kerry Madrid MD Medication Refill 09/19/2024 3:45 PM EST Office Visit [address] [address] Arnold Yates DO Skin lesion of neck (Primary Dx) 09/12/2024 4:45 PM EST Office Visit [address] [address] Arnold Yates DO Skin lesion of neck (Primary Dx) 09/09/2024 2:00 PM EST Office Visit [address] [address] Kerry Madrid MD Cervical radiculopathy (Primary Dx); Type 2 diabetes mellitus without complication, without long-term current use of insulin; Hypertriglyceridemia; Actinic keratosis 08/28/2024 Orders Only [address] [address] Kerry Madrid MD Cervical stenosis of spine (Primary Dx) 08/24/2024 6:32 AM EST - 08/24/2024 11:59 PM EST Hospital Encounter [facility] [address] Kerry Madrid MD Discharge Disposition: Home or Self Care 05/22/2024 Procedure Pass [address] [address] from Last 3 Months Immunizations Name Administration [...] high school, GED, job training, learning the Yi language, technical skills, or developing parenting skills)? [...] Upcoming Encounters Date Type Department Care Team ([facility] st Contact Info) Description 12/18/2024 3:00 PM EDT Office Visit [facility] Medicine [address] [place] [address] Kerry Madrid MD [address] [facility], [address] [place] [address] (work) [email or web address] Health Maintenance Due Date Last Done Comments HIV ONE-TIME SCREENING (18-65 YEARS) 1978 PNEUMOCOCCAL [...] SEE NARRATIVE - 09/24/2024 2:16 [place] [address] Design Quality Engineer: Rizwan Young MD ?? Surgical Pathology Report [...] : 1960 (Age: 64) Sex: M Institution: [facility] Location: [facility] Date of Operation: 09/19/2024 Date of [...] most prominent at C5-C6 and C6-C7 with afnp-fi-[id number] foraminal stenosis. Narrative 08/26/2024 10:53 AM EST [...] above, most prominent atC5-C6 and C6-C7 with pllt-aq-cwgebosw foraminal stenosis. Kerry Madrid MD IMG MR XSPECIALTY * (ABNORMAL) Hemoglobin A1c (08/03/2024 8:45 AM EST) HEMOGLOBIN A1C 6.0(H) 4.3 - 5.8 % [facility] Blood 08/03/2024 8:45 AM EST 08/03/2024 8:48 AM EST Kerry Madrid MD LAB BLOOD ORDERAB LES Performing Organization Address City/State/[facility] Co de Phone Number [address] [address] * Liver fibrosis test (04/06/2024 9:14 AM EDT) Fibrosis score 0.25 [facility] Interpretation (Fibrosis) SEE NOTE [facility] Comment: (NOTE) no fibrosis Fibro Test Score [...] fibrosis) HCV Fibrosis Grade SEE NOTE Q [employer] [facility]/ [facility] Comment: (NOTE) ?Result: ? F0-F1 NECROINFLAMM SCORE 0.06 Q [facility] NECROINFLAMM GRADE A0 Q [facility] NECROINFLAMM INTERP SEE NOTE [facility] Comment: (NOTE) no activity ActiTest Score (a) [...] A2 Macroglobulin 159 106 - 279 mg/dL [employer]/ [facility] Haptoglobin 122 43 - 212 mg/dL [facility]/ [facility] Apolipoprotein A1 126 94 - 176 mg/dL [facility]/ [facility] TOTAL BILIRUBIN 0.6 0.2 - 1.2 mg/dL [employer]/ [facility] GGT 18 3 - 70 U/L [employer]/ [facility] ALT 18 9 - 46 U/L [facility]/ [facility] Specimen/Product ID [id number] [facility]/ [facility] Comments (Chemistry) SEE NOTE [facility]/ [facility] Comment: (NOTE) The reliability of results is dependent on compliance with the preanalytical and analytical conditions recommended by [employer]. The tests have to be deferred for: [...] The performance characteristics have been determined by [employer] [place]. It has not been cleared or approved by the U.S. Food and Drug Administration. Performance characteristics refer to the analytical performance of the test. Carte Blanche, the associated logo, [employer]Scaled and all associated [employer] sal are the registered trademarks of [employer]. All third republican sal - (R) and (TM) - are the property of their respective owners. (C) [phone] [employer]. All rights reserved. Blood 04/06/2024 9:14 AM EDT 04/06/2024 9:18 AM EDT Sandra Rocha PA-C LAB BLOOD ORDERABL ES [employer] [facility] [address] [place] [address], [facility] [phone] * COLONOSCOPY FOR RESULT ENTRY ONLY (09/11/2019) Colonoscopy normal Historical Provider MD LEANNA Norton from Last 3 Months or Most Recently Relevant to Health Maintenance Care Teams Applied Marine Physics Professor Relationship Specialty Start Date End Date Kerry Madrid MD [address] [place] [address], [address] [place] [address] [email or web address] PCP - General Family Medicine 11/08/23 Sandra Rocha PA-C [address] [place] [address] [email or web address] Physician Asset Protection Manager Hematology 01/31/24 Additional Source Comments The information contained in this document represents components of the legal health record. It is not the complete legal health record.[facility]
--- OUTSIDE RECORDS SUMMARY | 2024-11-21 15:39 | XMS_ITS | Encounter Summary ---
Author Organization [facility] Address [address] [facility] [address] [place] [address] Phone Care Team Providers Care Motor Vehicles Supervisor Name Role Phone Kerry Madrdi MD Primary Care Provider [phone] Sandra Rocha PA-C Unavailable [phone] Encounter Details Date Type Department Care Team (Late st Contact Info) Description 05/22/2024 Procedure Pass [facility], [facility] [address] [place] [address] Social History Tobacco Use Types Packs/Day Years [...] high school, GED, job training, learning the Kyrgyz language, technical skills, or developing parenting skills)? [...] Description 12/18/2024 3:00 PM EDT Office Visit [facility] Medicine [address] [place] [address] Kerry Madrid MD [address] [address] [email or web address] documented as of this encounter Visit Diagnoses Not on filedocumented in this encounter Additional Health Concerns Assessment Noted Time PHQ-2 Depression Total Score: 0 02/06/20 24 6:18 AM EDT documented as of this encounter Care Teams Motor Vehicles Supervisor Relationship Specialty Start Date End Date Kerry Madrid MD [address] [address] PCP - General Family Medicine 11/08/23 Sandra Rocha PA-C [address] [place] [address] Physician Machinist Set Up Hematology 01/31/24 documented as of this encounter Additional Source Comments The information contained in this document represents components of the legal health record. It is not the complete legal health record.[facility]
[2024-12-05 11:26] VITALS: BP 168/88; PULSE 82; RESP 20; TEMP 37.1; O2SAT 96
[2024-12-05 11:31] VITALS: BMI 29.5
--- NOTE | 2024-12-05 12:08 | MHC.SHP ---
Pre-Procedural Eval Section A - 24 Hr Update-Section A only Date of Service: 12/05/24 The patient is an INPATIENT: No Section B - Complete if H&P > 30 days Chief Complaint: Carpal tunnel syndrome, unspecified upper limb Details of Present Illness: Carpal tunnel syndrome, left Allergies: Allergies Allergy/AdvReac Type Severity Reaction Status Date / Time No Known Allergies Allergy Verified 10/29/24 10:21 Review of Systems Sugical H&P ROS: Negative: Constitution, Cardiovascular, Respiratory, Neurological, Psychiatric, Hem-Onc, Allergic/Immunologic, Gastrointestinal, Genitourinary, Musculoskeletal, Integumentary, Endocrine and Eyes/Ears/Nose/Throat Exam Surgical H&P Exam: Normal: HEENT, Normal: Heart, Normal: Lungs, Normal: Extremities, Normal: Abdomen, Normal: Skin and Normal: Neurological (Awake, alert) Plan Diagnosis/Plan: Unchanged I have reviewed the history and physical and performed a pertinent physical examination on my patient. No changes have occurred unless specified. Carpal tunnel release, left side Time Spent With Patient Time: Total time managing care of this patient today _3___ minutes.
--- NOTE | 2024-12-05 12:09 | P.OP_ITS ---
Operative Note Operative Note Date of Service: 12/05/24 Narrative: Diagnosis: Left carpal tunnel syndrome Procedure: The median nerve release Surgeon: Ignacio Kenney MD PhD Description procedure: This bilateral carpal tunnel syndrome. He had his carpal tunnel release on the right side previously. He comes in today for a left carpal tunnel release. The patient was offered a decompression of the median nerve. The procedure complications were explained. The patient was con sented. The patient was brought to the operating room, where moderate sedation was applied. Prepping and draping was done followed by time-out. Marcaine was injected into the mid volar region. A midvolar incision was made. The ligamentum carpi transversum was opened sharply until the median nerve became visible. A Metzenbaum scissor was used to decompress the median nerve proximally and distally over its trajectory. Significant compression was present. Hemostasis was done. The incision was closed with 3 interrupted sutures. A compressive CARLTON wrap was used for hemostasis. All sponge and needle counts were correct. Patient was transported to the recovery room. Anesthesia: Moderate sedation and local anesthetic Blood loss: Minimal Complications: None Disposition: Discharge home
--- NOTE | 2024-12-05 12:43 | PC.NURSE ---
Pt arrived for local procedure. Cefazolin ordered for pt. Per Dr. Kenney no IV access needed and/or administration of ABX during procedure.
--- NOTE | 2024-12-05 13:29 | PM.DS ---
DS: Providers Provider Date of Service: 12/05/24 Date of discharge: 12/05/24 Primary care physician: Kerry Madrid MD DS: Summary Time Attestation Discharge Coordination Time (in mins): 12 Quality: Safe Use of Opioids Does Pt have an Active Cancer Diagnosis on the Problem List?: No Quality: Stroke Does the patient have a stroke diagnosis?: No Physical Exam Vital Signs: Vital Signs: Last Vital Signs Temp 98.7 F 12/05/24 11:26 Pulse 82 12/05/24 11:26 Resp 20 12/05/24 11:26 BP 168/88 H 12/05/24 11:26 Pulse Ox 96 12/05/24 11:26 O2 Del Method Room Air 12/05/24 11:26 BMI result Body Mass Index 29.5 Discharge Plan Discharge Patient Disposition: Home, Self-Care Referrals: Kerry Madrid MD [Primary Care Provider] - 1 Week Discharge Medications: New tramadol 50 mg tablet 50 mg PO Q6H PRN (Reason: pain) Qty: 28 0RF Continued rosuvastatin 5 mg tablet 5 mg PO QAM fenofibrate nanocrystallized 48 mg tablet 48 mg PO QAM Held tramadol 50 mg tablet 50 mg PO Q8H PRN (Reason: pain) Qty: 14 0RF Hold Instructions: Resume on 12/12/24. Patient reports he only has 2 left, will send in a new Rx Discharge Orders: Discharge Order (Routine); Ordered 12/05/24 Ordered By: Mehul Negrete Activity Restrictions/Additional Instructions: Discharge Instruction Carpal Tunnel Release You may remove your jose wrap on post op day 3, as well as the dressing underneath it There are sutures in your wound, and you will need these removed 10-14 days after surgery. Please call the office to arrange this visit, You can use your hand as much as you like, however, please avoid straining or heavy lifting It will help swelling in your hand to keep it elevated when you are not using it. You can shower on post op day 1, but please keep wound dry You can drive when you feel comfortable and are off narcotics If you experience any signs of infection such as fever, chills or redness/discharge from your wound,please call office right away Print Language: Spanish
[2024-12-05 13:51] VITALS: BP 160/92; PULSE 76; RESP 18; O2SAT 96
== END 2024-12-05 13:57 | disposition home or self-care (01) ==
PROVIDERS: PCP Student in an Organized Health Care Education/Training Program; Visit Provider Neurological Surgery
PROC: (CPT 64721; principal; 2024-12-05 13:00)
DX: G56.02 Carpal tunnel syndrome, left upper limb (principal); Z98.890 Other specified postprocedural states
CPT/HCPCS: 64721; J2003

== ENCOUNTER → 2024-12-05 11:18 | Outpatient (BNV) | payer BC, SELFPAY | PROVIDERS: PCP Student in an Organized Health Care Education/Training Program; Visit Provider Physician Assistant | DX: G56.02 Carpal tunnel syndrome, left upper limb (principal) | CPT/HCPCS: 64721; 99499 ==

== ENCOUNTER 2024-12-17 13:50 | Outpatient (AMB) | payer BC, SELFPAY ==
--- NOTE | 2024-12-17 13:57 | A.SPINEOV_ITS ---
Intake Visit Reasons: suture removal Intake Note: Mr. Vieira is here today to have his suture removed. Data Integrity Specialist Required: No Allergies No Known Allergies Allergy (Verified 12/17/24 13:57) Assessment & Plan Assessment & Plan (1) Carpal tunnel syndrome on both sides: Code(s): G56.03 - Carpal tunnel syndrome, bilateral upper limbs Category: Medical Plan Emilio is a pleasant 64-year-old male who comes in today after having a left- sided carpal tunnel release completed a few weeks ago by Dr. Kenney. He reports that he has been doing very well since the surgery, and has been using his left hand without much issue. Still has some residual tingling in the left hand he feels this too is improving. No new neurological deficits. The patient can curl his fingertips to the distal palmar crease without issue. I removed 3 sutures during this encounter. The patient tolerated the procedure well. I would like to follow up with Emilio in 6 weeks to ensure that he fully heals from his carpal tunnel release. Mehul Kenney MD,PhD [facility] Coding Level of Care Code Global (88529) Diagnoses Carpal tunnel syndrome on both sides G56.03
--- OUTSIDE RECORDS SUMMARY | 2024-12-17 16:55 | XMS_ITS | Encounter Summary ---
Author Organization [facility] Address [address] [place] [address] Phone Care Team Providers Care General Handling Supervisor Name Role Phone Kerry Madrid MD Primary Care Provider [phone] Sandra Rocha PA-C Unavailable [phone] Arnold Yates DO Unavailable Encounter Details Date Type Department Care Team (Late st Contact Info) Description 11/08/2023 Procedure Pass [facility], Ct Scan - [address] [id number] Social History Tobacco Use Types Packs/Day Years [...] high school, GED, job training, learning the Indian language, technical skills, or developing parenting skills)? [...] 12/18/2024 3:00 PM EDT Office Visit [facility] Family Medicine [address] [place] [address] Kerry Madrid MD 234 [facility], [address] [place] [address] [email or web address] documented as of this encounter Visit Diagnoses Not on filedocumented in this encounter Additional Health Concerns Assessment Noted Time PHQ-2 Depression Total Score: 0 11/02/19 24 5:37 PM EST documented as of this encounter Care Teams General Handling Supervisor Relationship Specialty Start Date End Date O'Banion, Kerry E, MD [address] [facility], [address] [place] [address] [email or web address] PCP - General Family Medicine 11/08/23 Sandra Rocha PA-C [address] [place] [address] [email or web address] Physician Actuarial Clerk Hematology 01/31/24 Arnold Yates DO [address] [facility], [address] [place] [address] [email or web address] Insurance Assigned Provider 12/15/24 documented as of this encounter Additional Source Comments The information contained in this document represents components of the legal health record. It is not the complete legal health record.[facility]
--- OUTSIDE RECORDS SUMMARY | 2024-12-17 16:55 | XMS_ITS | Encounter Summary ---
Author Organization [facility] Address [address] [place] [address] Phone Care Team Providers Care Ems Manager Name Role Phone Kerry Madrid MD Primary Care Provider [phone] Sandra Rocha PA-C Unavailable [phone] Arnold Yates DO Unavailable Encounter Details Date Type Department Care Team (Late st Contact Info) Description 05/22/2024 Procedure Pass [facility], [address] [address] Social History Tobacco Use Types Packs/Day Years [...] high school, GED, job training, learning the Mauritanian language, technical skills, or developing parenting skills)? [...] Description 12/18/2024 3:00 PM EDT Office Visit [facility] [place] [facility] [address] [place] [address] Kerry Madrid MD [address] [facility], [address] [place] [address] [email or web address] documented as of this encounter Visit Diagnoses Not on filedocumented in this encounter Additional Health Concerns Assessment Noted Time PHQ-2 Depression Total Score: 0 02/06/20 24 6:18 AM EDT documented as of this encounter Care Teams Ems Manager Relationship Specialty Start Date End Date O'Banion, Kerry E, MD [address] [facility], [address] [place] [address] [email or web address] PCP - General Family Medicine 11/08/23 Sandra Rocha PA-C [address] [place] [address] [email or web address] Physician Substitute Bus Driver Hematology 01/31/24 Arnold Yates DO [address] [facility], [address] [place] [address] [email or web address] Insurance Assigned Provider 12/15/24 documented as of this encounter Additional Source Comments The information contained in this document represents components of the legal health record. It is not the complete legal health record.[facility]
--- OUTSIDE RECORDS SUMMARY | 2024-12-17 16:55 | XMS_ITS | Clinical Summary ---
Author Organization [facility] Address [address] [facility] [address] [place] [address] Phone Care Team Providers Care Sales Route Driver Helper Name Role Phone Kerry Madrid MD Primary Care Provider [phone] Sandra Rocha PA-C Unavailable Arnold Yates DO Unavailable Allergies No known active allergies Medications Medication Sig Dispensed Refills Start Date End Date Status omeprazole (PRILOSEC) 20 MG capsule Take 20 mg by mouth daily. 09/11/2022 Active rosuvastatin (CRESTOR) 5 MG tablet TAKE 1 TABLET BY MOUTH EVERY DAY IN THE MORNING 90 tablet 3 10/29/2024 Active fenofibrate (TRICOR) 48 MG tablet TAKE 1 TABLET BY MOUTH EVERY DAY IN THE MORNING 90 tablet 3 12/13/2024 Active fenofibrate (TRICOR) 48 MG tablet Take 1 tablet (48 mg total) by mouth every morning. 90 tablet 3 12/20/2023 12/13/2024 Discontinued Hospital, Clinic, or Other Facility Administered [...] for 10/28, would like 2nd option at [facility]) Orders: Ambulatory referral to External Neurosurgery Assessment [...] PM EST): Recheck fasting labs prior to november, so he has time to regroup after [...] Encounters Date Type Department Care Team Description 12/13/2024 Refill [facility] [address] [place] [address] Kerry Madrid MD Medication Refill 12/06/2024 8:42 AM EDT - 12/06/2024 11:59 PM EDT Hospital Encounter [facility] [address] [place] [address] Kerry Madrid MD Discharge Disposition: Home or Self Care 10/27/2024 Refill [facility] [address] [place] [address] Kerry Madrid MD Medication Refill 09/19/2024 3:45 PM EST Office Visit [facility] [address] [place] [address] Arnold Yates DO Skin lesion of neck (Primary Dx) from Last 3 Months Immunizations Name Administration [...] work, study, or receive health care? No 12/11/2024 Education Answer Date Recorded Are you interested in help w ith more adult education (for example, completing high school, GED, job training, learning the Algerian language, technical skills, or developing parenting skills)? No 12/11/2024 Are you concerned about learning? Not on file 12/11/2024 No 12/11/2024 Yes 12/11/2024 Food Answer Date Recorded Within the past 6 months we worried whether our food would run out before we got money to buy more. Never True 12/11/2024 Within the past 6 months the food we bought just didn't last and we didn't have enough money to get more. Never True Residential Stability Answer Date Recor ded What is your housing situation today? I have allison sing 12/11/2024 How many times have you move d in the past 12 months? Zero (I did not move) 12/11/2024 Paying for Meds Answer Date Recorded Do you have trouble paying for medicines? No 12/11/2024 Paying Utility Bills Answer Date Record ed Do you have trouble paying your heating or elect ricity bill? No 12/11/2024 Transportation Answer Date Recorded Has the lack of transportati on kept you from medical appointments or from getting medications? No 12/11/2024 Digital Access Answer Date Recorded No 12/11/2024 Yes 12/11/2024 Do you have reliable internet access at home? Ye s 12/11/2024 Do you have a device (e.g., phone, tablet, computer) with a working camera? Yes 12/11/2024 Intimate Partner Violence Answer Date R ecorded Denied Basic Needs Not on file 12/11/2024 In the past 12 months have y ou been in a relationship with a person who hurts, threatens, or tries to control you? No 12/11/2024 Worried food would run out Not on file 12/11 In the past 12 months have y ou been in a relationship with a person who hurts, threatens, or tries to control you? No 12/11/2024 Sex and Gender Information Value Date Recorded [...] Description 12/18/2024 3:00 PM EDT Office Visit [facility] Medicine [address] [place] [address] Kerry Madrid MD [address] [place] [address], [address] [place] [address] [email or web address] Health Maintenance Due Date Last Done Comments HIV ONE-TIME SCREENING (18-65 YEARS) 1978 PNEUMOCOCCAL VACCINES (50+ years) (1 of 2 - PCV) 1979 COLOGUARD 2005 FIT TEST 2005 FOBT 2005 SIGMOIDOSCOPY 2005 VIRTUAL COLONOSCOPY 2005 ZOSTER VACCINES (1 of 2) 2010 DIABETIC EYE EXAM 02/06/2024 BLOOD PRESSURE 03/12/2025 09/12/2024 HEMOGLOBIN A1C 06/08/2025 12/06/2024, 07/13, 04/27/2024, Additional history exists URINE MICROALBUMIN/CREATININE RATIO 12/06/2025 12/06/2024 DEPRESSION SCREENING 12/11/2025 12/11/2024 COLONOSCOPY 09/11/2029 09/11/2019 COLORECTAL CANCER SCREENING 09/11/2029 [...] Procedure Name Priority Date/Time Associated Diagnosis Comments MICROALBUMIN/CREATININ E RATIO, RANDOM URINE Routine 12/06/2024 8:54 AM EDT Type 2 diabetes mellitus without complication, without long-term current use of insulin COMPREHENSIVE METABOLIC PANEL Routine 12/06/2024 8:42 AM EDT Type 2 diabetes mellitus without complication, without long-term current use of insulin HEMOGLOBIN A1C Routine 12/06/2024 8:42 AM EDT Type 2 diabetes mellitus without complication, without long-term current use of insulin LIPID PANEL Routine 12/06/2024 8:42 AM EDT Hypertriglyceridem ia ANATOMIC PATHOLOGY Routine 09/19/2024 12 :00 AM EST LIVER FIBROSIS TEST Routine 04/06/2024 9 :14 AM EDT Elevated ferritin level HM COLONOSCOPY FOR RESULT ENTRY ONLY Routine 09/11/2019 from Last 3 Months or Most Recently Relevant to Health Maintenance Results * Microalbumin/creatinine ratio, random urine (12/06/2024 8:54 AM EDT) URINE MICROALBUMIN <1.2 0 - 2.3 mg/dL [facility] URINE CREATININE 153 mg/dL [employer] [facility] MICROALB/CRE RATIO NOT CALCULATED 0 - 20 mg/g Cre [facility] Comment:due to Microalbumin <1.2 Urine (Urine) 12/06/2024 8:5 4 AM EDT 12/06/2024 8:55 AM EDT Kerry Madrid MD URINE ORDERABLES Performing Organization Address City/State/[facility] Co de Phone Number [address] [address] * (ABNORMAL) Comprehensive metabolic panel (12/06/2024 8:42 AM EDT) SODIUM 139 133 - 146 mmol/L [facility] POTASSIUM 4.3 3.3 - 5.1 mmol/L [facility] CHLORIDE 105 96 - 108 mmol/L [facility] CO2 24 21 - 35 mmol/L [facility] BUN 21(H) 6 - 19 mg/dL [facility] CREATININE 0.90 0.5 - 1.5 mg/dL [facility] GLUCOSE 135(H) 70 - 99 mg/dL [facility] ALBUMIN 4.2 3.9 - 4.8 g/dL [facility] TOTAL PROTEIN 7.0 6.5 - 8.0 g/dL [facility] CALCIUM 9.0 8.4 - 10.3 mg/dL [facility] ALKALINE PHOSPHATASE 42 39 - 117 U/L [facility] TOTAL BILIRUBIN 0.6 0.0 - 1.2 mg/dL [facility] AST 27 0 - 37 U/L [facility] ALT 24 0 - 40 U/L [facility] GLOBULIN 2.8 1 - 4.8 g/dL [facility] EGFR 95 >59 mL/min/1.7 3m2 [facility] Comment:Estimated glomerular filtration rate calculated using the CKD-EPI refit equation. ANION GAP 14 10 - 20 mmol/L [facility] Blood 12/06/2024 8:42 AM EDT 12/06/2024 8:45 AM EDT Kerry Madrid MD LAB BLOOD ORDERAB LES Performing Organization Address City/[facility]/ZIP Co de Phone Number [address] [address] * (ABNORMAL) Hemoglobin A1c (12/06/2024 8:42 AM EDT) HEMOGLOBIN A1C 6.2(H) 4.3 - 5.8 % [facility] Blood 12/06/2024 8:42 AM EDT 12/06/2024 8:45 AM EDT Kerry Madrid MD LAB BLOOD ORDERAB LES Performing Organization Address City/[facility] Co de Phone Number [address] [address] * (ABNORMAL) Lipid panel (12/06/2024 8:42 AM EDT) HDL 35 mg/dL [facility] Comment: ? Interpretation <40 mg/dL: Low HDL cholesterol (major risk factor for CHD) Greater than or equal to 60 mg/dL: High HDL cholesterol ( negative risk factor for CHD) HDL - cholesterol is affected by a number of factors, e.g. smoking, excerise, hormones, sex and age. CHOLESTEROL 186 0 - 240 mg/dL [facility] TRIGLYCERIDES 354(H) 30 - 160 mg/dL [facility] LDL 80 50 - 129 mg/dL [facility] Comment: LDL levels in terms of risk for coronary heart disease: <100 mg/dL: Optimal 100-129 mg/dL: Near or above optimal 130-159 mg/dL: Borderline high 160-189 mg/dL: High >190 mg/dL: Very High CARDIAC RISK RATIO 5.3(H) 3.4 - 5.0 C [facility] Blood 12/06/2024 8:42 AM EDT 12/06/2024 8:45 AM EDT Kerry Madrid MD LAB BLOOD ORDERAB LES [address] [address] * Anatomic Pathology (09/19/2024 12:00 AM EST) 09/19/2024 09/23/2024 9:1 0 AM EST Narrative SEE NARRATIVE - 09/24/2024 2:16 PM EST [address] [address] Negative Turner: Rizwan Young MD ?? Surgical Pathology Report [...] : 1960 (Age: 64) Sex: M Institution: [facility] Location: [facility] Date of Operation: 09/19/2024 Date of Reported: 09/24/2024 14:16 Results To: Jessica Crain MD Arnold Yates DO PATHOLOGY ORDERABLES SEE NARRATIVE * Liver fibrosis test (04/06/2024 9:14 AM EDT) Fibrosis score 0.25 [facility] Interpretation (Fibrosis) SEE NOTE [facility] Comment: (NOTE) no fibrosis Fibro Test Score [...] fibrosis) HCV Fibrosis Grade SEE NOTE Q [facility] Comment: (NOTE) ?Result: ? F0-F1 NECROINFLAMM SCORE 0.06 Q [facility] NECROINFLAMM GRADE A0 Q [facility] NECROINFLAMM INTERP SEE NOTE [facility] Comment: (NOTE) no activity ActiTest Score (a) [...] A2 Macroglobulin 159 106 - 279 mg/dL [employer] [facility] Haptoglobin 122 43 - 212 mg/dL [employer] [facility] Apolipoprotein A1 126 94 - 176 mg/dL [employer] [facility] TOTAL BILIRUBIN 0.6 0.2 - 1.2 mg/dL [employer] [facility] GGT 18 3 - 70 U/L [facility] ALT 18 9 - 46 U/L [employer] Specimen/Product ID [id number] [employer] [facility] Comments (Chemistry) SEE NOTE [employer] [facility]/ [facility] Comment: (NOTE) The reliability of results is dependent on compliance with the preanalytical and analytical conditions recommended by [employer]. The tests have to be deferred for: [...] The performance characteristics have been determined by [employer], [place]. It has not been cleared or approved by the U.S. Food and Drug Administration. Performance characteristics refer to the analytical performance of the test. [email or web address], the associated logo, [employer] and all associated [employer] sal are the registered trademarks of [employer]. All third green party sal - (R) and (TM) - are the property of their respective owners. (C) [id number] [employer]. All rights reserved. Blood 04/06/2024 9:14 AM EDT 04/06/2024 9:18 AM EDT Sandra Rocha PA-C LAB BLOOD ORDERABL ES [facility] [address] [place] [address], [place] [phone] * COLONOSCOPY FOR RESULT ENTRY ONLY (09/11/2019) Colonoscopy normal Historical Provider MD LEANNA Norton from Last 3 Months or Most Recently Relevant to Health Maintenance Care Teams Sales Route Driver Helper Relationship Specialty Start Date End Date Kerry Madrid MD [address] [place] [address], [address] [place] [address] [email or web address] PCP - General Family Medicine 11/08/23 Sandra Rocha PA-C [address] [place] [address] [email or web address] Physician Residential Appraiser Hematology 01/31/24 Arnold Yates DO [address] [place] [address] [address] [place] [address] [email or web address] Insurance Assigned Provider 12/15/24 Additional Source Comments The information contained in this document represents components of the legal health record. It is not the complete legal health record.[facility]
--- OUTSIDE RECORDS SUMMARY | 2024-12-17 16:55 | XMS_ITS | Encounter Summary ---
Author Organization [facility] Address [address] [place] [address] Phone Care Team Providers Care Vp Celebrity Services Name Role Phone Kerry Madrid MD Primary Care Provider [phone] Sandra Rocha PA-C Unavailable Reason for Visit * Reason Comments Medication Refill Encounter Details Date Type Department Care Team (Late st Contact Info) Description 12/13/2024 Refill [facility] [address] [place], [place] [phone] Kerry Madrid MD [address] [place] [address] [address] [place], [place] [phone] [email or web address] Medication Refill Social History Tobacco Use Types [...] high school, GED, job training, learning the Swedish language, technical skills, or developing parenting skills)? [...] housing situation today? I have allison landers 12/11/2024 How many times have you move [...] as of this encounter Progress Notes * Ricky Vivian - 12/13/2024 11:34 AM EDT Rx Care Gap Status - Instructions for Clinical Staff (prescriber discretion applies): n/a Visit Info Last visit: 09/19/2024 Arnold Yates DO - Family Medicine [facility] [place] [facility] > Requested f/u: Return if symptoms worsen or fail to improve. Upcoming visit: 12/18/2024 Kerry Madrid MD - Family Medicine [facility] [place] [facility] ACTIONS TAKEN BY Vivian García - Refill protocol passed: no action needed. Cholesterol Medication Rx Protocol (on Diabetes Registry) - fenofibrate nanocrystallized Criteria met; renew for up to 12 months. Visit in the past 14 months: Yes Clinical criteria: - Lipid panel within past year: Yes (LDL 80 on 12/06/2024) Lab Results Component Value Date LDL 80 12/06/2024 HDL 35 12/06/2024 CARDIAC RISK RATIO 5.3 (H) 12/06/2024 TRIGLYCERIDES 354 (H) 12/06/2024 CHOLESTEROL 186 12/06/2024 documented in this encounter Plan of Treatment Upcoming Encounters Date Type Department Care Team ([facility] st Contact Info) Description 12/18/2024 3:00 PM EDT Office Visit [facility] [address] [place] [address] Kerry Madrid MD [address] [address] [email or web address] documented as of this encounter Visit Diagnoses Not on filedocumented in this encounter Additional Health Concerns Assessment Noted Time PHQ-2 Depression Total Score: 0 12/12/19 25 9:06 PM EDT documented as of this encounter Care Teams Vp Celebrity Services Relationship Specialty Start Date End Date Kerry Madrid MD [address] [address] PCP - General Family Medicine 11/08/23 Sandra Rocha PA-C [address] [place] [address] Physician Can Technician Hematology 01/31/24 documented as of this encounter Additional Source Comments The information contained in this document represents components of the legal health record. It is not the complete legal health record.[facility]
== END 2024-12-17 14:08 | disposition home or self-care (01) ==
LOC: HO.HNS 13:51
PROVIDERS: PCP Student in an Organized Health Care Education/Training Program; Visit Provider Physician Assistant
DX: G56.03 Carpal tunnel syndrome, bilateral upper limbs (principal)
CPT/HCPCS: 99024

== ENCOUNTER → 2024-12-17 13:50 | Outpatient (BNVA) | payer BC, SELFPAY | PROVIDERS: PCP Student in an Organized Health Care Education/Training Program; Visit Provider Physician Assistant ==

== ENCOUNTER 2025-01-28 14:16 | Outpatient (AMB) | payer BC, SELFPAY ==
--- NOTE | 2025-01-28 14:21 | A.SPINEOV_ITS ---
Intake Visit Reasons: 2nd post op Intake Note: Mr. Vieira is here today for his 2nd post op. Recovery Coach Required: No Allergies No Known Allergies Allergy (Verified 12/17/24 13:57) Assessment & Plan Assessment & Plan (1) Carpal tunnel syndrome on both sides: Code(s): G56.03 - Carpal tunnel syndrome, bilateral upper limbs Category: Medical Plan Emilio is a pleasant 64-year-old male who comes in today after having a left- sided carpal tunnel release completed a couple of months ago by Dr. Kenney. He reports that he is very satisfied with the surgery and reports that his residual symptoms documented during his last visit have subsided. No new neurological deficits. The patient can curl his fingertips to the distal palmar crease without issue. The incision site on his ventral wrist is closed and well healed. There is no need for continued routine follow up with this patient, he may be discharged. Mehul Kenney MD,PhD [facility] Coding Level of Care Code Global (47944) Diagnoses Carpal tunnel syndrome on both sides G56.03
--- OUTSIDE RECORDS SUMMARY | 2025-01-28 15:42 | XMS_ITS | Encounter Summary ---
Author Organization [facility] Address [address] [place] [address] Phone Care Team Providers Care Nursing Secretary Name Role Phone Kerry Madrid MD Primary Care Provider [phone] Sandra Rocha PA-C Unavailable [phone] Arnold Yates DO Unavailable Encounter Details Date Type Department Care Team (Late st Contact Info) Description 11/08/2023 Procedure Pass [facility] Scan - [address] [id number] Social History Tobacco Use Types Packs/Day Years [...] high school, GED, job training, learning the Scottish language, technical skills, or developing parenting skills)? [...] Recorded Sex Assigned at Not on file Legal Sex Male 11:52 AM EST Gender Identity Not on file Sexual Orientation Not on file documented as of this encounter Plan of Treatment Upcoming Encounters Date Type Department Care Team (Late st Contact Info) Description 06/19/2025 4:00 PM EDT Office Visit [facility] [address] [place] [address] Kerry Madrid MD 234 [facility], [address] [place] [address] [email or web address] documented as of this encounter Visit Diagnoses Not on filedocumented in this encounter Additional Health Concerns Assessment Noted Time PHQ-2 Depression Total Score: 0 11/02/19 24 5:37 PM EST documented as of this encounter Care Teams Nursing Secretary Relationship Specialty Start Date End Date Kerry Madrid MD [address] [place] [address] 7 [place] [address] [email or web address] PCP - General Family Medicine 11/08/23 Sandra Rocha PA-C [address] [place] [address] [email or web address] Physician Build Master Hematology 01/31/24 Arnold Yates DO [address] [place] [address] 7 [place] [address] [email or web address] Insurance Assigned Provider 12/15/24 documented as of this encounter Additional Source Comments The information contained in this document represents components of the legal health record. It is not the complete legal health record.[facility]
--- OUTSIDE RECORDS SUMMARY | 2025-01-28 15:42 | XMS_ITS | Clinical Summary ---
Author Organization [facility] Address [address] [address] Phone Care Team Providers Care Falsework Builder Name Role Phone Kerry Madrid MD Primary Care Provider [phone] Sandra Rocha PA-C Unavailable Arnold Yates DO Unavailable Allergies No known active allergies Medications omeprazole (PRILOSEC) 20 MG capsule Take 20 mg by mouth daily. 09/11/2022 Active rosuvastatin (CRESTOR) 5 MG tablet TAKE 1 TABLET BY MOUTH EVERY DAY IN THE MORNING 90 tablet 3 10/29/2024 Active fenofibrate (TRICOR) 48 MG tablet TAKE 1 TABLET BY MOUTH EVERY DAY IN THE MORNING 90 tablet 3 12/13/2024 Active Hospital, Clinic, or Other Facility Administered Medication Ordered Dose Route Frequency Start Date End Date Status triamcinolone acetonide (KENALOG-40) 40 mg/mL injection 40 mgIndications:Left knee pain 40 mg IM Once 12/30/2024 03/30/2025 Active BUPivacaine HCl (MARCAINE) 0.5% injection 3 mLIndications:Left knee pain 3 mL Infil Once 12/30/2024 03/30/2025 Active lidocaine (XYLOCAINE) 1% injection 3 mLIndications:Left knee pain 3 mL Infil Once 12/30/2024 03/30/2025 Active Active Problems Problem Noted Date Diagnosed Date History of bilateral carpal tunnel release 11/26 Overview (12/18/2024): Recently had carpal tunnel release surgery on each hand. Skin lesion of neck 09/12/2024 Assessment & Plan (09/19/2024 4:03 PM EST): Emilio Vieira is a 64 y.o. year old male [...] for 10/28, would like 2nd option at [facility]) Orders: Ambulatory referral to External Neurosurgery Assessment [...] Encounters Date Type Department Care Team Description 12/30/2024 4:00 PM EDT Office Visit [facility] [address] [place] [address] [place] [address] Jose De La Rosa MD Primary osteoarthritis of left knee (Primary Dx); Left knee pain 12/30/2024 3:02 PM EDT - 12/30/2024 11:59 PM EDT Hospital Encounter [facility], X-Ray - [address] [place] [address] Jose De La Rosa MD Discharge Disposition: Home or Self Care 12/20/2024 Orders Only [facility] [address] [place] [address] Radha Reza MA Left knee pain (Primary Dx) 12/18/2024 3:00 PM EDT Office Visit [address] [address] Kerry Madrid MD Annual physical exam (Primary Dx); Screening for metabolic disorder; Chronic pain of left knee; Need for prophylactic vaccination against Streptococcus pneumoniae (pneumococcus) 12/13/2024 Refill [facility] Medicine [address] [place] [address] Kerry Madrid MD Medication Refill 12/06/2024 8:42 AM EDT - 12/06/2024 11:59 PM EDT Hospital Encounter [facility] [place] [address] Kerry Madrid MD Discharge Disposition: Home or Self Care from Last 3 Months Immunizations Immunization Administration Dates Next Due Flu H1n1 Tiv Preservative Free 07/12/2018 Influenza Quadrivalent MDCK Preservative Free IM 09/05/2023,07/25/2022,07/06/2021 Influenza Quadrivalent Preservative Free IM 12/2019 Influenza Trivalent Preservative Free IM 024 Influenza Trivalent w/ Preservative IM 7 Pneumococcal conjugate PCV20 12/18/2024 Td, unspecified formulation 11/17/2004 Tdap 09/05/2023,11/26/2014 Family History Medical History Relation Comments Alzheimer's disease Father Heart attack Father Prostate cancer Father COPD Mother Dementia Mother Diabetes Mother No Known Problems Sister 1 No Known Problems Sister 2 Relation Status Comments Father alzheimer's 90 Mother 84 of demen tia Sister 1 Alive Sister 2 Alive Social History Tobacco Use Types Packs/Day Years [...] high school, GED, job training, learning the British language, technical skills, or developing parenting skills)? [...] Sign Reading Time Taken Comments Blood Pressure 132/78 12/18/2024 2:59 PM EDT Pulse 101 12/18/2024 2:59 PM EDT Temperature 37.1 ??C (98.7 ??F) 12/18/2024 2:59 PM ED T Respiratory Rate - - Oxygen Saturation 98% 12/18/2024 2:59 PM EDT Inhaled Oxygen Concentration - - Weight 93.9 kg (207 lb) 12/18/2024 2:59 PM EDT Height 177.8 cm (5' 10 ) 09/19/2024 3:46 PM EST Body Mass Index 29.7 09/19/2024 3:46 PM EST Plan of Treatment Upcoming Encounters Date Type Department Care Team (Late st Contact Info) Description 06/19/2025 4:00 PM EDT Office Visit [facility] Medicine [address] [place] [address] Kerry Madrid MD [address] [facility], [address] [place] [address] [email or web address] Due Date Last Done Comments HIV ONE-TIME SCREENING (18-65 YEARS) 1978 COLOGUARD 2005 FIT TEST 2005 FOBT 2005 SIGMOIDOSCOPY 2005 VIRTUAL COLONOSCOPY 2005 ZOSTER VACCINES (1 of 2) 2010 DIABETIC EYE EXAM 02/06/2024 HEMOGLOBIN A1C 06/08/2025 12/06/2024, 11/2 11/2023, 04/27/2024, Additional history exists BLOOD PRESSURE 06/19/2025 12/18/2024 URINE MICROALBUMIN/CREATININE RATIO 12/06/2025 12/06/2024 DEPRESSION SCREENING 12/11/2025 12/11/2024 COLONOSCOPY 09/11/2029 09/11/2019 COLORECTAL CANCER SCREENING 09/11/2029 Adult Td,Tdap Booster 09/05/2033 09/05/2023 , 11/26/2014, 11/17/2004 RSV VACCINE (1 - 1-dose 75+ series) 2035 HEPATITIS C SCREENING Completed 04/06/2024 COVID-19 VACCINE Completed 06/29/2024, 10/2020, 01/12/2021, Additional history exists PNEUMOCOCCAL VACCINES (50+ years) Completed 12/18/2024 SMOKING STATUS SCREENING (Once After 26 Yrs) Completed 12/30/2024 HEPATITIS A VACCINES Aged Out No long er eligible based on patient's age to complete this topic HIB VACCINES Aged Out No longer eligi ble based on patient's age to complete this topic MENINGOCOCCAL VACCINES (ACWY) Aged Out No longer eligible based on patient's age to complete this topic MENINGOCOCCAL VACCINES (B) Aged Out N o longer eligible based on patient's age to complete this topic Medical Devices Not on file Procedures Procedure Name Priority Date/Time Associated Diagnosis Comments XR KNEE 3 VIEW (LEFT) Routine 12/30/2024 3:24 PM EDT Left knee pain MICROALBUMIN/CREATININ E RATIO, RANDOM URINE Routine 12/06/2024 [...] Routine 12/06/2024 8:42 AM EDT Hypertriglyceridem ia LIVER FIBROSIS TEST Routine 04/06/2024 9 :14 AM EDT Elevated ferritin level HM COLONOSCOPY FOR RESULT ENTRY ONLY Routine 09/11/2019 from Last 3 Months or Most Recently Relevant to Health Maintenance Results * XR KNEE 3 VIEW (LEFT) (12/30/2024 3:24 PM EDT) Anatomical Region Laterality Modality Knee Left Computed Radiogr aphy 12/31/2024 1:19 PM EDT Impressions 12/31/2024 1:35 PM EDT No acute fracture or dislocation. Degenerative changes. Subtle subchondral lucency medial femoral condyle may be due to osteochondral lesion. Follow-up MRI may be beneficial. Joint effusion Narrative 12/31/2024 1:35 PM EDT XR KNEE 3 VIEW (LEFT) Referring clinician's provided indication for this examination in Epic: Pain COMPARISON: None FINDINGS: Left Knee: No acute displaced fracture or dislocation. There is mild joint space narrowing in the lateral patellofemoral joint and medial femoral tibial compartment with mild marginal osteophytes off the femoral condyles tibial plateau and patella. There is subtle subchondral lucency in the medial femoral condyle which may be due to osteochondral lesion. Small joint effusion. Procedure Note Johnny Maxwell MD - 12/31/2024 XR KNEE 3 VIEW (LEFT) Referring clinician's provided indication for this examination in Epic:Pain COMPARISON: None FINDINGS: Left Knee: No acute displaced fracture or dislocation. There is mild jointspace narrowing in the lateral patellofemoral joint and medial femoraltibial compartment with mild marginal osteophytes off the femoral condylestibial plateau and patella. There is subtle subchondral lucency in themedial femoral condyle which may be due to osteochondral lesion. Smalljoint effusion. IMPRESSION: No acute fracture or dislocation. Degenerative changes. Subtle subchondral lucency medial femoral condyle may be due toosteochondral lesion. Follow-up MRI may be beneficial. Joint effusion us Jose De La Rosa MD IMG XR LOWER EXTREMITY Final Result * Microalbumin/creatinine ratio, random urine (12/06/2024 8:54 AM EDT) URINE MICROALBUMIN <1.2 0 - 2.3 mg/dL [facility] URINE CREATININE 153 mg/dL ELECTRON BEAM MACHINE WELDER SETTER [facility] MICROALB/CRE RATIO NOT CALCULATED 0 - 20 mg/g Cre [facility] Comment:due to Microalbumin <1.2 Urine (Urine) 12/06/2024 8:5 4 AM EDT 12/06/2024 8:55 AM EDT us Kerry Madrid MD URINE ORDERABLES Final Re sult [facility] [address] [place] [address] * (ABNORMAL) Comprehensive metabolic panel (12/06/2024 8:42 AM EDT) SODIUM 139 133 - 146 mmol/L [facility] POTASSIUM 4.3 3.3 - 5.1 mmol/L [facility] CHLORIDE 105 96 - 108 mmol/L [facility] CO2 24 21 - 35 mmol/L [facility] BUN 21(H) 6 - 19 mg/dL [facility] CREATININE 0.90 0.5 - 1.5 mg/dL [facility] GLUCOSE 135(H) 70 - 99 mg/dL [facility] ALBUMIN 4.2 3.9 - 4.8 g/dL [facility] TOTAL PROTEIN 7.0 6.5 - 8.0 g/dL [facility] CALCIUM 9.0 8.4 - 10.3 mg/dL [facility] ALKALINE PHOSPHATASE 42 39 - 117 U/L [facility] TOTAL BILIRUBIN 0.6 0.0 - 1.2 mg/dL [facility] AST 27 0 - 37 U/L [facility] ALT 24 0 - 40 U/L [facility] GLOBULIN 2.8 1 - 4.8 g/dL [facility] EGFR 95 >59 mL/min/1.7 3m2 [facility] Comment:Estimated glomerular filtration rate calculated using the CKD-EPI refit equation. ANION GAP 14 10 - 20 mmol/L [facility] Blood 12/06/2024 8:42 AM EDT 12/06/2024 8:45 AM EDT us Kerry Madrid MD LAB BLOOD ORDERABLES Anel l Result [address] [address] * (ABNORMAL) Hemoglobin A1c (12/06/2024 8:42 AM EDT) HEMOGLOBIN A1C 6.2(H) 4.3 - 5.8 % [facility] Blood 12/06/2024 8:42 AM EDT 12/06/2024 8:45 AM EDT us Kerry Madrid MD LAB BLOOD ORDERABLES Anel l Result Performing Organization Address [facility]/ZIP Co de Phone Number [address] [address] * (ABNORMAL) Lipid panel (12/06/2024 8:42 AM EDT) HDL 35 mg/dL [facility] Comment: ? Interpretation <40 mg/dL: Low HDL cholesterol (major risk factor for CHD) Greater than or equal to 60 mg/dL: High HDL cholesterol ( negative risk factor for CHD) HDL - cholesterol is affected by a number of factors, e.g. smoking, excerise, hormones, sex and age. CHOLESTEROL 186 0 - 240 mg/dL [facility] TRIGLYCERIDES 354(H) 30 - 160 mg/dL [facility] LDL 80 50 - 129 mg/dL [facility] Comment: LDL levels in terms of risk for coronary heart disease: <100 mg/dL: Optimal 100-129 mg/dL: Near or above optimal 130-159 mg/dL: Borderline high 160-189 mg/dL: High >190 mg/dL: Very High CARDIAC RISK RATIO 5.3(H) 3.4 - 5.0 C [facility] Blood 12/06/2024 8:42 AM EDT 12/06/2024 8:45 AM EDT us Kerry Madrid MD LAB BLOOD ORDERABLES Anel l Result Performing Organization Address [facility]/ZIP Co de Phone Number [address] [address] * Liver fibrosis test (04/06/2024 9:14 AM EDT) Fibrosis score 0.25 [facility] Interpretation (Fibrosis) SEE NOTE [facility] Comment: (NOTE) no fibrosis Fibro Test Score [...] Fibrosis Grade SEE NOTE Q [facility] Comment: (NOTE) ?Result: ? F0-F1 NECROINFLAMM SCORE 0.06 Q [facility] NECROINFLAMM GRADE A0 Q [facility] NECROINFLAMM INTERP SEE NOTE [facility] Comment: (NOTE) no activity ActiTest Score (a) [...] A2 Macroglobulin 159 106 - 279 mg/dL [facility] Haptoglobin 122 43 - 212 mg/dL [facility] Apolipoprotein A1 126 94 - 176 mg/dL [facility] TOTAL BILIRUBIN 0.6 0.2 - 1.2 mg/dL [facility] GGT 18 3 - 70 U/L [facility] ALT 18 9 - 46 U/L [facility] Specimen/Product ID [id number] [facility] Comments (Chemistry) SEE NOTE [facility] Comment: (NOTE) The reliability of results is dependent on compliance with the preanalytical and analytical conditions recommended by [employer]. The tests have to be deferred for: [...] The performance characteristics have been determined by [facility]. It has not been cleared or approved by the U.S. Food and Drug Administration. Performance characteristics refer to the analytical performance of the test. [email or web address], the associated logo, [employer] and all associated [employer] sal are the registered trademarks of [employer]. All third constitution party sal - (R) and (TM) - are the property of their respective owners. (C) [id number] [employer]. All rights reserved. Blood 04/06/2024 9:14 AM EDT 04/06/2024 9:18 AM EDT Sandra Rocha PA-C LAB BLOOD ORDERABLES Final Result [employer] [address] [place] [address], [facility] [phone] * COLONOSCOPY FOR RESULT ENTRY ONLY (09/11/2019) Colonoscopy normal Historical Provider MD HEALTH MAINTENANCE Final Result from Last 3 Months or Most Recently Relevant to Health Maintenance Insurance [facility] PPO EPO [facility] PPO EPO [facility] PPO EPO [facility] PPO EPO PPO EPO PPO EPO Care Teams Falsework Builder Relationship Specialty Start Date End Date Kerry Madrid MD [address] [place] [address], [address] [place], [place] [id number] [email or web address] PCP - General Family Medicine 2/28/24 Sandra Rocha PA-C [address] [place] [address] [email or web address] Physician Rubber Extrusion Machine Operator Hematology 01/31/24 Arnold Yates DO [address] [place] [address], [address] [place] [address] [email or web address] Insurance Assigned Provider 12/15/24 Additional Source Comments The information contained in this document represents components of the legal health record. It is not the complete legal health record.[facility]
--- OUTSIDE RECORDS SUMMARY | 2025-01-28 15:42 | XMS_ITS | Encounter Summary ---
Author Organization [facility] Address [address] [place] [phone] Phone Care Team Providers Care Eco Industrial Development Consultant Name Role Phone Kerry Madrid MD Primary Care Provider [phone] Sandra Rocha PA-C Unavailable [phone] Arnold Yates DO Unavailable Encounter Details Date Type Department Care Team (Late st Contact Info) Description 05/22/2024 Procedure Pass [facility], [address] [address] Social History Tobacco Use Types Packs/Day Years [...] high school, GED, job training, learning the Burkinan language, technical skills, or developing parenting skills)? [...] Description 06/19/2025 4:00 PM EDT Office Visit [facility] Medicine [address] [place] [address] Kerry Madrid MD [address] [facility], [address] [place] [address] [email or web address] documented as of this encounter Visit Diagnoses Not on filedocumented in this encounter Additional Health Concerns Assessment Noted Time PHQ-2 Depression Total Score: 0 02/06/20 24 6:18 AM EDT documented as of this encounter Care Teams Eco Industrial [employer] Consultant Relationship Specialty Start Date End Date Kerry Madrid MD [address] [place] [address] [address] [place] [address] [email or web address] PCP - General Family Medicine 11/08/23 Sandra Rocha PA-C [address] [place] [address] [email or web address] Physician Firefighter Type One Hematology 01/31/24 Arnold Yates DO [address] [place] [address] [address] [place] [address] [email or web address] Insurance Assigned Provider 12/15/24 documented as of this encounter Additional Source Comments The information contained in this document represents components of the legal health record. It is not the complete legal health record.[facility]
== END 2025-01-28 14:29 | disposition home or self-care (01) ==
LOC: HO.HNS 14:16
PROVIDERS: PCP Student in an Organized Health Care Education/Training Program; Visit Provider Physician Assistant
DX: G56.03 Carpal tunnel syndrome, bilateral upper limbs (principal)
CPT/HCPCS: 99024